=== PATIENT | female | born 1995 | race Caucasian/White ===

== ENCOUNTER 2021-06-25 16:11 | Emergency (ER) | payer OTHER, SELFPAY ==
[2021-06-25 16:11] VITALS: BP 124/77; PULSE 115; RESP 16; TEMP 37.1; O2SAT 98; BMI 50.8
[2021-06-25 16:31] VITALS: BP 104/37; PULSE 111; RESP 20; O2SAT 99
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
[2021-06-25 16:37] VITALS: BP 131/74; PULSE 107; RESP 20; O2SAT 97
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
[2021-06-25 17:01] VITALS: BP 114/70; PULSE 105; RESP 20; O2SAT 97
--- NOTE | 2021-06-25 17:07 | PC.NURSE ---
USHA HESS at
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
[2021-06-25 17:51] LABS: HCG Qualitative, Serum Negative (Negative)
[2021-06-25 17:52] LABS: Alanine Aminotransferase 30 U/L (12-78); Albumin Level 3.9 g/dl (3.5-5.0); Albumin/Globulin Ratio 1.3 (1.1-1.8); Alkaline Phosphatase 87 U/L (38-126); Anion Gap 10.9 mEq/L (5-15); Aspartate Amino Transferase 29 U/L (14-36); Bilirubin,Total 0.3 mg/dl (0.2-1.3); Blood Urea Nitrogen 8 mg/dl (7-17); Calcium 8.8 mg/dl (8.4-10.2); Carbon Dioxide 27 mmol/L (22.0-30.0); Chloride 105 mmol/L (98-107); Creatinine Clearance Estimated 101 mL/min (50-200); Estimated Glomerular Filt Rate 120 ml/min (>60); GFR (African American) 145 ML/MIN (>60); Glucose 109 mg/dl (74-100); Potassium 3.9 mmoL/L (3.5-5.1); Sodium 139 mmol/L (136-145); Total Protein,Serum 6.9 g/dl (6.3-8.2)
[2021-06-25 17:54] LABS: Basophils # 0.1 K/mm3 (0-0.2); Basophils % 0.9 % (0.1-2.0); Eosinophils # 0.2 K/mm3 (0.0-0.4); Eosinophils % 1.8 % (0.1-12.0); Hematocrit 35.5 % (37.0-47.0); Hemoglobin 11.4 g/dL (12.2-16.2); Lymphocytes # 2.1 K/mm3 (0.7-4.5); Lymphocytes % 25.4 % (10-50); Mean Corpuscular HGB Conc 32.2 g/dL (31.8-35.4); Mean Corpuscular Hemoglobin 23.9 pg (27.0-31.2); Mean Corpuscular Volume 74.4 fl (81-99); Mean Platelet Volume 7.9 fl (7.4-10.4); Monocytes # 0.4 K/mm3 (0.1-1.0); Monocytes % 5.1 % (1.7-9.3); Neutrophils # 5.6 K/mm3 (1.8-7.8); Neutrophils % 66.8 % (37.0-80.0); Platelet Count 357 K/mm3 (142-424); Red Blood Count 4.77 M/mm3 (4.20-5.40); Red Cell Distribution Width 16.1 % (11.5-17.5); White Blood Count 8.3 K/mm3 (4.8-10.8)
[2021-06-25 20:19] VITALS: BP 114/70; PULSE 105; RESP 18; TEMP 36.7; O2SAT 99
== END 2021-06-25 20:22 | disposition home or self-care (01) ==
PROVIDERS: Emergency Provider Emergency Medicine
DX: S40.012A Contusion of left shoulder, initial encounter (principal); S70.02XA Contusion of left hip, initial encounter; M54.2 Cervicalgia; V87.7XXA Person injured in collision between other specified motor vehicles (traffic), initial encounter
CPT/HCPCS: 70450; 71275; 72125; 73000; 73030; 73060; 73502; 73552; 74177; 80053; 84703; 85025; 99284; Q9967

== ENCOUNTER → 2022-03-11 15:26 | Outpatient (CLI) | payer OTHER, SELFPAY ==
[2022-03-11 15:33] LABS: Adenovirus,PCR Not Detected (NotDetected); Bordetella Pertussis Not Detected (NotDetected); Chlamydophila Pneumoniae, PCR Not Detected (NotDetected); Coronavirus 19, PCR Not Detected (NotDetected); Coronavirus 229E Not Detected (NotDetected); Coronavirus NL63 Not Detected (NotDetected); Coronavirus OC43 Not Detected (NotDetected); Human Metapneumovirus Not Detected (NotDetected); Influenza A, PCR Not Detected (NotDetected); Influenza AH1, 2009 Not Detected (NotDetected); Influenza AH1, PCR Not Detected (NotDetected); Influenza AH3,PCR Not Detected (NotDetected); Influenza B, PCR Not Detected (NotDetected); Mycoplasma Pneumoniae, PCR Not Detected (NotDetected); Parainfluenza 1, PCR Not Detected (NotDetected); Parainfluenza 2, PCR Not Detected (NotDetected); Parainfluenza 3, PCR Not Detected (NotDetected); Parainfluenza 4, PCR Not Detected (NotDetected); Respiratory Syncytial Virus Not Detected (NotDetected); Rhinovirus/Enterovirus Not Detected (NotDetected)
[2022-03-11 17:13] LABS: Coronovirus HKU1,PCR Detected (NotDetected)
== END ==
LOC: LAB 15:27
PROVIDERS: PCP Family Medicine; Visit Provider Nurse Practitioner Family
DX: U07.1 COVID-19 (principal); J02.9 Acute pharyngitis, unspecified; R05.1 Acute cough
CPT/HCPCS: 87581; 87632; 87798; C9803; U0003; U0005

== ENCOUNTER 2022-07-04 01:16 | Emergency (ER) | payer OTHER, SELFPAY ==
--- NOTE | 2022-07-04 | ECG_ITS ---
APPROVED REPORT Exam: Resting ECG HR:95 bpm ECG Measurements Heart Rate 95 AXES NC 164 P -9 QRSd 86 QRS 30 QT 326 T 10 QTc 378 Conclusion SINUS RHYTHM NORMAL ECG UNCONFIRMED REPORT Electronically signed by : Pedro Carbajal MD 07/05/2022 14:32:27
[2022-07-04 01:17] VITALS: BP 149/81; PULSE 91; RESP 17; TEMP 36.8; O2SAT 100; BMI 53.8
[2022-07-04 01:30] VITALS: BP 115/77; PULSE 85; O2SAT 100
--- NOTE | 2022-07-04 01:52 | XR_ITS ---
PROCEDURE INFORMATION: Exam: XR Chest Exam date and time: 07/04/2022 1:51 AM Age: 26 years old Clinical indication: Pain; Chest pressure; Additional info: Chest pain TECHNIQUE: Imaging protocol: Radiologic exam of the chest. Views: 2 views. COMPARISON: CT ANGIO CHEST 06/25/2021 6:09 PM FINDINGS: Lungs: Normal. Pleural spaces: Unremarkable. No pleural effusion. No pneumothorax. Heart/Mediastinum: Normal. Bones/joints: No acute abnormality. IMPRESSION: No acute findings.
[2022-07-04 02:01] LABS: Basophils # 0.1 K/mm3 (0-0.2); Basophils % 0.5 % (0.1-2.0); Eosinophils # 0.2 K/mm3 (0.0-0.4); Eosinophils % 1.7 % (0.1-12.0); Hematocrit 37.4 % (37.0-47.0); Hemoglobin 11.6 g/dL (12.2-16.2); Lymphocytes # 3.8 K/mm3 (0.7-4.5); Lymphocytes % 33.9 % (10-50); Mean Corpuscular HGB Conc 30.9 g/dL (31.8-35.4); Mean Corpuscular Hemoglobin 21.9 pg (27.0-31.2); Mean Corpuscular Volume 70.8 fl (81-99); Mean Platelet Volume 7.9 fl (7.4-10.4); Monocytes # 0.6 K/mm3 (0.1-1.0); Monocytes % 5.4 % (1.7-9.3); Neutrophils # 6.5 K/mm3 (1.8-7.8); Neutrophils % 58.4 % (37.0-80.0); Platelet Count 412 K/mm3 (142-424); Red Blood Count 5.29 M/mm3 (4.20-5.40); Red Cell Distribution Width 17.2 % (11.5-17.5); White Blood Count 11.1 K/mm3 (4.8-10.8)
[2022-07-04 02:02] LABS: Chloride 101 mmol/L (98-107)
--- NOTE | 2022-07-04 02:02 | PC.NURSE ---
patient back in room from [facility] at this time.
[2022-07-04 02:03] LABS: Potassium 3.9 mmoL/L (3.5-5.1); Sodium 138 mmol/L (136-145)
[2022-07-04 02:05] LABS: Amylase 65 U/L (30-110)
[2022-07-04 02:06] LABS: Anion Gap 9.9 mEq/L (5-15); Blood Urea Nitrogen 9 mg/dl (7-17); Calcium 8.9 mg/dl (8.4-10.2); Carbon Dioxide 31 mmol/L (22.0-30.0); Creatinine Clearance Estimated 90 mL/min (50-200); Estimated Glomerular Filt Rate 100 ml/min (>60); GFR (African American) 121 ML/MIN (>60); Glucose 100 mg/dl (74-100); Lipase 122 U/L (23-300); Magnesium 2.1 mg/dl (1.6-2.3)
[2022-07-04 02:08] VITALS: BP 121/75; PULSE 80; O2SAT 97
[2022-07-04 02:13] LABS: HCG Qualitative, Serum Negative (Negative)
[2022-07-04 02:18] LABS: Troponin I < 0.01 ng/ml (0.00-0.034)
[2022-07-04 02:30] VITALS: BP 136/77; PULSE 90; O2SAT 100
[2022-07-04 02:41] LABS: Coronavirus 19, PCR Not Detected (NotDetected); Influenza A, PCR Not Detected (NotDetected); Influenza B, PCR Not Detected (NotDetected); Microscopic, Urine URINE MICROSCOPIC (MICROSCOPIC)
[2022-07-04 02:42] LABS: Appearance,Urine CLEAR (Clear); Bilirubin,Urine Negative (Negative); Blood, Urine Negative (Negative); Color,Urine YELLOW (Yellow); Glucose,Urine (UA) Negative (Negative); Ketones,Urine Negative (Negative); Leukocyte Esterase,Urine 3+ (Negative); Nitrate,Urine Negative (Negative); PH,Urine 5.5 (5.0-8.5); Protein,Urine Negative (Negative); Specific Gravity, Urine <= 1.005 (1.005-1.030); Urobilinogen,Urine 0.2 EU/dl (0.2)
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
[2022-07-04 02:53] LABS: Bacteria,Urine 1+ /lpf; WBC,Urine 20-50 #/hpf (0-3)
[2022-07-04 03:00] VITALS: BP 128/83; PULSE 84; O2SAT 98
--- NOTE | 2022-07-04 03:21 | PC.NURSE ---
pt brought back to room from wheelchair
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
[2022-07-04 04:13] VITALS: BP 116/72; PULSE 79; RESP 18; TEMP 36.8; O2SAT 98
== END 2022-07-04 04:18 | disposition home or self-care (01) ==
PROVIDERS: Emergency Provider Emergency Medicine; PCP Nurse Practitioner Family
DX: R07.89 Other chest pain (principal); M25.511 Pain in right shoulder; N39.0 Urinary tract infection, site not specified
CPT/HCPCS: 71046; 71275; 80048; 81001; 82150; 83690; 83735; 84484; 84703; 85025; 87086; 87635; 87636; 93005; 96361; 96374; 96375; 99285; C9803; J0696; Q9967; U0003; U0005

== ENCOUNTER 2023-10-11 11:34 | Outpatient (CLI) | payer OTHER, SELFPAY ==
[2023-10-13 04:13] LABS: Progesterone 1.3 ng/mL (.)
== END 2023-10-11 23:59 | disposition home or self-care (01) ==
LOC: LAB 11:41
PROVIDERS: PCP Nurse Practitioner Family; Visit Provider Nurse Practitioner Family
DX: N97.9 Female infertility, unspecified (principal)
CPT/HCPCS: 36415; 84144

== ENCOUNTER 2024-12-08 11:39 | Emergency (ER) | payer OTHER, SELFPAY ==
[2024-12-08 11:44] VITALS: BP 154/81; PULSE 94; RESP 16; TEMP 37.1; O2SAT 100; BMI 45.3
[2024-12-08 11:51] VITALS: BP 137/79; PULSE 93; O2SAT 99
--- OUTSIDE RECORDS SUMMARY | 2024-12-08 11:57 | XMS_ITS | Continuity of Care Document ---
Author Organization [place] [facility] [place] [facility] and [facility]urg Address [address] [place] [address] Care Team Providers Care Agricultural Extension Educator Name Role Phone [facility] Primary Care Pro vider Assessment Encounter Date Assessment Date Assessment LastModified by Organization Details LastModified Time 10/23/2024 10/23/2024 A total of 5 minutes was spent with the pt today. Recommendations: 1. Download Barit[employer] and start keeping food records 2. Look for food triggers and replace with healthy snacks 3. Wean of diet soft drinks 4. Eat 3-6 times a day 5. Review manual for meal and snack ideas 6. Physical activity 3 times a week for 20 min 7. Start pre-op diet when instructed Pt doing well overall. Addressed concerns today. Pt was reassured at today's visit. Pt verbally agreed to recommendations and goals. Denied further questions/concerns . RDN will monitor weight loss, labs, meds, and lifestyle modifications. Will f/up as scheduled or PRN. Not available 10/23/2024 09:16:53 Plan of Treatment Reminders Order Date Submit Date Provider Last Modified By Organization Details Last Modified Time Details Appointments OV EST 20 025 10:40AM MEHREEN GTZ RD Not available Not available Not available OV EST 20 025 08:40AM ARTUR Caballero Not available Not available Not available Lab None record ed. Referral None record ed. Procedures None record ed. Surgeries None record ed. Imaging None record ed. Medication Orders None record ed. Patient Targets Encounter Date Encounter Id Patient Goals Patient Target Last Modified By Organization Details Last Modified Time 10/23/2024 [id number] 1. Download Baritastic and start keeping food records 2. Look for food triggers and replace with healthy snacks 3. Wean of diet soft drinks 4. Eat 3-6 times a day 5. Review manual for meal and snack ideas 6. Physical activity 3 times a week for 20 min [email or web address] Not available 10/23/2024 09:16:31 Patient InstructionsNo instructions recorded. Reason for Referral None Reported. Results Created Date Observation Date Name Description Value Unit Range Abnormal Flag Note LastModifiedBy Organization Detail LastModifiedTime 09/26/1909/25/2024 XR, chest , 2 view [facility] [address] [place] [address] Phone: Fax: Name: JONNY GUERRERO RD Exam Date: : [birth year] Age 29 years Gender : F Access ion: [id number] Physic lola: JESSI QUEVEDO Facili ty: [facility] Facili ty HSV: Outpat ient Exam: CHEST 2 VIEWS EXAM: XR CHEST 2 VIEWS INDICA TION: preop. . TECHNI QUE: 2 views of the chest were submit roselia. COMPAR LAMAR:N o prior study was submit roselia for compar lamar FINDIN GS: The medias tinum and cardia c silhou ette are not enlarg ed. There is no pneumo thorax . There is no pulmon mary jane infilt rate or atelec tasis. IMPRES FAM: No infilt rate. Electr onical ly signed by: Shawn buckley MD 2024 10:18 AM EDT RP Workst ation: [id number] Dictat ed By: SHAWN DANIELSON Transc ribed By: Transc ribed On: 025 10:18 AM Electr onical ly signed by: SHAWN DANIELSON Thank you for referr pepper GUERRERO WINTERJONNY to [facility] it Hospit al. Legall y authen ticate d by ALEXIA Castañeda 09-25 10:18: 22 CC'ed Logic: Orderi ng Provid er: EMY Buckley Attend ing Provid er: EMY Buckley Admitt ing Provid er: EMY Buckley [id number] [facility] [address], [place], [address], 09/25/2024 10:31:48 Result Notes None recorded. Problems Name Problem SNOMED Code Status Onset Date Resolution Date Notes Provider Name and Address Organization Details Recorded Time Prediabete s 841369351 Active 2024 WHIT QUEVEDO NP [address], [place], [address] , [place] - [facility] [place] [facility] [place] 5 08:52:53 Polycystic ovary syndrome 615626524 Active 2024 WHIT QUEVEDO NP [address] [facility], [place], [address] , [place] - [facility] [place] [facility] [place] 5 08:52:58 Severe obesity 6819715103850 4 Active 2024 WHIT QUEVEDO NP [address] [facility], [place], [address] , [place] [facility] [place] [facility] [place] 5 08:53:45 Problem Notes None recorded. Procedures Surgical History Date Name Laterality Status Provider Name and Address Organization Details Recorded Time 11/13 bypass of duodenum completed Maine Mccoy [place] - [facility] [place] [facility] [place] 5 08:17:26 09/21 ESOPHAGOGASTRODUODENOSCOPY (SURG) completed Ian keith [place] - [facility] [place] [facility] [place] 5 13:07:00 02/08 extraction of wisdom tooth completed CHRISTINA QUEVEDO NP [address] [facility], [place], [address] , [place] - [facility] [place] [facility] [place] 5 10:38:14 Imaging Results None recorded. Procedure Notes None recorded. Medical Equipment None Reported. Allergies Allergen ID Allergen Name Allergen Category Reaction Reaction Severity Criticality Documentation Date Start Date Code Code System Note Provider Name and Address Organization Details Recorded Time 126343 amoxicill in medicatio n hives Not available Not available 08/31/2024 723 RxNorm Lilly Velazquez [facility], [facility] [place] 08:14:49 Medications Name Sig Start Date Stop Date Status Note LastModified by Organization Details LastModified Time Neurontin 300 mg capsule Take 1 capsule 3 times a day by oral route for 7 days. 11/22 completed Not Available Not Available Not Available Celebrex 100 mg capsule Take 1 capsule twice a day by oral route ] for 7 days. 11/22 completed Not Available Not Available Not Available omeprazole 20 mg capsule,ivory yed release Take 1 capsule every day by oral route for 30 days. 2024 active Not Available Not Available Not Avai lable Vitals Date Recorded Body weight Provider Name an d Address Organization Details Last Updated DateTime 10/23/2024 691202.49 g Chelsi BUTLER [address] [facility], [place], [address], [facility] [place] 10/23/2024 09:17:51 Social History None recorded. Functional Status Question Answer Note LastModified by Organizat ion Details LastModified Time Do you use any illicit or recreational drugs? No [email or web address] Information not available 08/31/2024 What is your level of alcohol consumption? None [email or web address] Information not available 08/31/2024 Mental Status None recorded. Family History Relationship Description Onset Age of this Age Resolved Age Notes LastModified by Organization Details LastModified Time Maternal Grandmother Disorder of endocrine system pt. added direct ly (08/28) [email or web address] Not available 08/28/2024 13:12:00 Paternal Aunt Disorder of endocrine system pt. added direct ly (08/28) [email or web address] Not available 08/28/2024 13:12:00 Paternal Aunt Obesity pt. added direct ly (08/28) [email or web address] Not available 08/28/2024 13:12:29 Mother Obesity pt. added direct ly (08/28) [email or web address] Not available 08/28/2024 13:12:29 Maternal Aunt Obesity pt. added direct ly (08/28) [email or web address]-13 Not available 08/28/2024 13:12:29 Medical History Condition Response Diabetes Y Other Y Pulmonary Embolism N Gynecological HistoryNo gynecological history recorded. Obstetrics History GPAL:G 0 P 0 0 0 0 Past Encounters Encounter ID Performer Location Encounter Start Date Encounter Closed Date Diagnosis/Indication Diagnosis SNOMED-CT Code Diagnosis ICD10 Code Diagnosis IMO Codes Diagnosis Note [id number] [address], LD [facility] Bariat[facility] and Adv Surg [address] [place] [address] 09/25/2024 08:55:39 09/25/2024 10:04:47 Morbid obesity 873792213 E66.01 91609 BMI 49 wt loss 7.5# [id number] MEHREEN GTZ RD [facility] Bariatric s and Adv Surg [address] [address] [place] [address] 10/23/2024 08:56:55 10/23/2024 09:43:22 Diet education 37014602 Z71.3 [id number] Health Concerns Section Related Observation LastModified by Organization Detai ls LastModified Time None Recorded Concern Status LastModified by Organization Details LastModified Time None Recorded Payers Encounter Date Sequence Insurance Name Policy Number Policy Parker Covered Member ID Parker Member ID Guarantor Name 10/23/2024 1 HEENA Dawson [id number] Jonny Dawson Notes Date Note Type Note Provider Name and Address Organization Details Recorded Time 10/23/2024 text/html RDN met w/ pt today for weight-check in pursuit of WLS. Height: 61 Weight Today: 255.4BMI: 48.2 Weight change since last visit: -4.1#Weight Hx:267# on 08/31/19960.5# on 09/25/24 Current Diet: High Protein, moderate carb, cut down on diet coke and has increase water and powerade zero, drinking protein shakesCurrent Exercise: walking dogs MEHREEN GTZ [address], [place], [address], [facility] [place] 10/23/2024 09:17:13 OBGyn Episode No OBEpisode recorded.
--- OUTSIDE RECORDS SUMMARY | 2024-12-08 11:57 | XMS_ITS | Data Portability ---
Author Organization [facility] Address [address] [place] [address] Assessment Encounter Date Assessment Date Assessment LastModified by Organization Details LastModified Time 02/11/2024 02/11/2024 Labs per plan below. Wellness discussed including recommended screenings, vaccines and lifestyle changes including routine exercise 30 minutes 5 times per week and a healthy diet. Continue care with PHARMACY OPERATIONS COORDINATOR. Follow up in 1 year for annual physical, sooner if needed. Not available 02/16/2024 12:57:13 09/29/2024 09/29/2024 Cleared from primary care standpoint. Paperwork completed and labs reviewed (WNL) with patient in clinic today. Follow up after surgery as needed Not available 10/04/2024 18:12:30 Plan of Treatment Reminders Order Date Submit Date Provider Last Modified By Organization Details Last Modified Time Details Appointments None recorded. Lab progesteron e, serum 2024 025 [facility] ([facility]), [address] [place], [address], 5 04:06:45 vaginal pathogens panel, PATTI+probe, vaginal fluid 2024 025 [facility] ([facility]), [address] [place], [address], 5 22:06:07 [email or web address] otropin, qual, urine 2024 025 [email or web address] [facility] ([place]), [address] [place], [address], 5 11:30:51 TSH, ultra-sensi tive, serum 2024 025 [facility]), [facility] [place], [address], 5 04:07:36 lipid panel, serum 2024 025 [facility]), [facility] [place], [address], 5 04:07:36 HbA1c (hemoglobin A1c), blood 2024 025 [facility]), [address] [place] [address], [address], 5 04:07:36 CBC w/ auto diff 2024 025 [facility]), [address] [place] [address], [address], 5 04:07:35 CMP, serum or plasma 2024 025 [facility]), [address] [place] [address], [address], 5 04:07:35 Referral None recorded. Procedures artificial inseminatio n, intrauterin e (PROC) 2024 025 [email or web address]-[id number] [facility], [place], [address] [place] [address], [id number], 5 14:15:55 Surgeries None recorded. Imaging US, pelvis 2024 025 [facility] [place] [address], [address] [place] [address], [address], 5 09:37:33 US, hysterosalp ingogram [email or web address] [place] [address] (Central Scheduling), [address] [place] [address] [place], [address], 09:02:44 Medication Orders Ovidrel 250 mcg/0.5 mL subcutaneou s syringe 2024 025 [facility], [address], [address], 5 16:44:12 Ozempic 0.25 mg or 0.5 mg (2 mg/1.5 mL) subcutaneou s pen injector 2024 025 [facility], [address] [address], [place], [address], 16:15:17 Patient TargetsNo targets recorded. Patient Instructions Encounter Date Encounter Id Patient Instructions Last Modified By Organization Details Last Modified Time 09/29/2024 [id number] body mass index: care instructions Not available 10/04/2024 18:13:25 learning about healthy weight Not available 10/04/2024 18:13:25 Reason for Referral None Reported. Results Created Date Observation Date Name Description Value Unit Range Abnormal Flag Note LastModifiedBy Organization Detail LastModifiedTime 01/17/20 24 01/18/2024 PROGE STERO NE progesterone <0.1 NG/mL Folli cular phase 0.1 - 0.9 Lutea l phase 1.8 - 23.9 Ovula tion phase 0.1 - 12.0 Pregn ant First trime ster 11.0 - 44.3 Secon d trime ster 25.4 - 83.3 Third trime ster 58.7 - 214.0 Postm enopa usal 0.0 - 0.1 Not Available [facility] ([facility]) [address] [facility], [place], [address], 01/18/2024 04:07:10 02/10/19 25 02/12/2024 CBC WITH DIFFE RENTI AL/PL ATELE T WBC 7.3 x10e3 /uL 3.4-10 .8 normal Not Available [facility] ([facility]) [address] [facility], [place], [address], 02/12/2024 04:07:35 02/10/1902/12/2024 CBC WITH DIFFE RENTI AL/PL ATELE T RBC 4.93 x10e6 /uL 3.77-5 .28 normal Not Available [facility] ([facility]) [address] [place], [address], 02/12/2024 04:07:35 02/10/19 25 02/12/2024 CBC WITH DIFFE RENTI AL/PL ATELE T hemoglobin 13.6 g/dL 11.1-1 5.9 normal Not Available [facility] ([facility]) [address] [facility], [place], [address], 02/12/2024 04:07:35 02/10/1902/12/2024 CBC WITH DIFFE RENTI AL/PL ATELE T hematocrit 41.8 % 34.0-4 6.6 normal Not Available [facility] ([facility]) [address] [place], [address], 02/12/2024 04:07:35 02/10/1902/12/2024 CBC WITH DIFFE RENTI AL/PL ATELE T MCV 85 fL 79-97 normal Not Available [facility] ([facility]) [address] [place], [address], 02/12/2024 04:07:35 02/10/1902/12/2024 CBC WITH DIFFE RENTI AL/PL ATELE T MCH 27.6 pg 26.6-3 3.0 normal Not Available [facility] ([facility]) [address] [place], [address], 02/12/2024 04:07:35 02/10/19 25 02/12/2024 CBC WITH DIFFE RENTI AL/PL ATELE T MCHC 32.5 g/dL 31.5-3 5.7 normal Not Available [facility] ([facility]) [address] [facility], [place], [address], 02/12/2024 04:07:35 02/10/19 25 02/12/2024 CBC WITH DIFFE RENTI AL/PL ATELE T RDW 13.2 % 11.7-1 5.4 Not Available [facility] ([facility]) [address] [facility], [place], [address], 02/12/2024 04:07:35 02/10/19 25 02/12/2024 CBC WITH DIFFE RENTI AL/PL ATELE T platelets 376 x10e3 /uL 150-45 0 normal Not Available [facility] ([facility]) [address] [facility], [place], [address], 02/12/2024 04:07:35 02/10/19 25 02/12/2024 CBC WITH DIFFE RENTI AL/PL ATELE T neutrophils 49 % not estab. normal Not Available [facility] ([facility]) [address] [facility], [place], [address], 02/12/2024 04:07:35 02/10/19 25 02/12/2024 CBC WITH DIFFE RENTI AL/PL ATELE T lymphs 41 % not estab. normal Not Available [facility] ([facility]) [address] [facility], [place], [address], 02/12/2024 04:07:35 02/10/19 25 02/12/2024 CBC WITH DIFFE RENTI AL/PL ATELE T monocytes 6 % not estab. normal Not Available [facility] ([facility]) [address] [facility], [place], [address], 02/12/2024 04:07:35 02/10/19 25 02/12/2024 CBC WITH DIFFE RENTI AL/PL ATELE T eos 3 % not estab. normal Not Available [facility] ([facility]) [address] [facility], [place], [address], 02/12/2024 04:07:35 02/10/19 25 02/12/2024 CBC WITH DIFFE RENTI AL/PL ATELE T basos 1 % not estab. normal Not Available [facility] ([facility]) [address] [facility], [place], [address], 02/12/2024 04:07:35 02/10/19 25 02/12/2024 CBC WITH DIFFE RENTI AL/PL ATELE T immature cells BUSINESS OBJECTS ANALYST Not Available [facility] ([facility]) [address] [facility], [place], [address], 02/12/2024 04:07:35 02/10/19 25 02/12/2024 CBC WITH DIFFE RENTI AL/PL ATELE T neutrophils (absolute) 3.6 x10e3 /uL 1.4-7. 0 normal Not Available [facility] ([facility]) [address] [facility], [place], [address], 02/12/2024 04:07:35 02/10/19 25 02/12/2024 CBC WITH DIFFE RENTI AL/PL ATELE T lymphs (absolute) 3.0 x10e3 /uL 0.7-3. 1 normal Not Available [facility] ([facility]) [address] [facility], [place], [address], 02/12/2024 04:07:35 02/10/19 25 02/12/2024 CBC WITH DIFFE RENTI AL/PL ATELE T monocytes(ab solute) 0.4 x10e3 /uL 0.1-0. 9 normal Not Available [facility] ([facility]) [address] [place], [address], 02/12/2024 04:07:35 02/10/19 25 02/12/2024 CBC WITH DIFFE RENTI AL/PL ATELE T eos (absolute) 0.2 x10e3 /uL 0.0-0. 4 normal Not Available [facility] ([facility]) [address] [facility], [place], [address], 02/12/2024 04:07:35 02/10/19 25 02/12/2024 CBC WITH DIFFE RENTI AL/PL ATELE T baso (absolute) 0.0 x10e3 /uL 0.0-0. 2 normal Not Available [facility] ([facility]) [address] [facility], [place], [address], 02/12/2024 04:07:35 02/10/19 25 02/12/2024 CBC WITH DIFFE RENTI AL/PL ATELE T immature granulocytes 0 % not estab. Not Available [facility] ([facility]) [address] [facility], [place], [address], 02/12/2024 04:07:35 02/10/19 25 02/12/2024 CBC WITH DIFFE RENTI AL/PL ATELE T immature grans (abs) 0.0 x10e3 /uL 0.0-0. 1 Not Available [facility] ([facility]) [address] [facility], [place], [address], 02/12/2024 04:07:35 02/10/19 25 02/12/2024 CBC WITH DIFFE RENTI AL/PL ATELE T NRBC BUSINESS OBJECTS ANALYST Not Available [facility] ([facility]) [address] [facility], [place], [address], 02/12/2024 04:07:35 02/10/19 25 02/12/2024 CBC WITH DIFFE RENTI AL/PL ATELE T hematology comments: BUSINESS OBJECTS ANALYST Not Available [facility] ([facility]) [address] [facility], [place], [address], 02/12/2024 04:07:35 02/10/19 25 02/12/2024 COMP. METAB OLIC PANEL (14) glucose 108 mg/dL 70-99 above high normal Not Available [facility] ([facility]) [address] [place], [address], 02/12/2024 04:07:35 02/10/19 25 02/12/2024 COMP. METAB OLIC PANEL (14) BUN 10 mg/dL 6-20 normal Not Available [facility] ([facility]) [address] [facility], [place], [address], 02/12/2024 04:07:35 02/10/19 25 02/12/2024 COMP. METAB OLIC PANEL (14) creatinine 0.60 mg/dL 0.57-1 .00 normal Not Available [facility] ([facility]) [address] [facility], [place], [address], 02/12/2024 04:07:35 02/10/19 25 02/12/2024 COMP. METAB OLIC PANEL (14) eGFR 124 mL/mi n/1.7 3 >59 normal Not Available [facility] ([facility]) [address] [facility], [place], [address], 02/12/2024 04:07:35 02/10/19 25 02/12/2024 COMP. METAB OLIC PANEL (14) BUN/creatini ne ratio 17 9-23 normal Not Available [facility] ([facility]) [address] [facility], [place], [address], 02/12/2024 04:07:35 02/10/19 25 02/12/2024 COMP. METAB OLIC PANEL (14) sodium 139 mmol/ L 134-14 4 normal Not Available [facility] ([facility]) [address] [facility], [place], [address], 02/12/2024 04:07:35 02/10/19 25 02/12/2024 COMP. METAB OLIC PANEL (14) potassium 4.1 mmol/ L 3.5-5. 2 normal Not Available [facility] ([facility]) [address] [facility], [place], [address], 02/12/2024 04:07:35 02/10/19 25 02/12/2024 COMP. METAB OLIC PANEL (14) chloride 103 mmol/ L 96-106 normal Not Available [facility] ([facility]) [address] [facility] [place], [address], 02/12/2024 04:07:35 02/10/19 25 02/12/2024 COMP. METAB OLIC PANEL (14) carbon dioxide, total 20 mmol/ L 20-29 normal Not Available [facility] ([facility]) [address] [place] [place], [address], 02/12/2024 04:07:35 02/10/19 25 02/12/2024 COMP. METAB OLIC PANEL (14) calcium 9.2 mg/dL 8.7-10 .2 normal Not Available [facility] ([facility]) [address] [facility], [place], [address], 02/12/2024 04:07:35 02/10/19 25 02/12/2024 COMP. METAB OLIC PANEL (14) protein, total 7.0 g/dL 6.0-8. 5 normal Not Available [facility] ([facility]) [address] [place] [place], [address], 02/12/2024 04:07:35 02/10/19 25 02/12/2024 COMP. METAB OLIC PANEL (14) albumin 4.2 g/dL 4.0-5. 0 normal Not Available [facility] ([facility]) [address] [place] [place], [address], 02/12/2024 04:07:35 02/10/19 25 02/12/2024 COMP. METAB OLIC PANEL (14) globulin, total 2.8 g/dL 1.5-4. 5 Not Available [facility] ([facility]) [address] [facility], [place], [address], 02/12/2024 04:07:35 02/10/19 25 02/12/2024 COMP. METAB OLIC PANEL (14) bilirubin, total 0.5 mg/dL 0.0-1. 2 normal Not Available [facility] ([facility]) [address] [place] [place], [address], 02/12/2024 04:07:35 02/10/19 25 02/12/2024 COMP. METAB OLIC PANEL (14) alkaline phosphatase 92 IU/L 44-121 normal Not Available [facility] ([facility]) [address] [place] [place], [address], 02/12/2024 04:07:35 02/10/19 25 02/12/2024 COMP. METAB OLIC PANEL (14) AST (SGOT) 23 IU/L 0-40 normal Not Available [facility] ([facility]) [address] [place] [place], [address], 02/12/2024 04:07:35 02/10/19 25 02/12/2024 COMP. METAB OLIC PANEL (14) ALT (SGPT) 37 IU/L 0-32 above high normal Not Available [facility] ([facility]) [address] [place] [place], [address], 02/12/2024 04:07:35 02/10/19 25 02/12/2024 LIPID PANEL cholesterol, total 174 mg/dL 100-19 9 normal Not Available [facility] ([facility]) [address] [place] [place], [address], 02/12/2024 04:07:36 02/10/19 25 02/12/2024 LIPID PANEL triglyceride s 189 mg/dL 0-149 above high normal Not Available [facility] ([facility]) [address] [facility] [place], [address], 02/12/2024 04:07:36 02/10/19 25 02/12/2024 LIPID PANEL HDL cholesterol 44 mg/dL >39 normal Not Available [facility]) [address] [place] [place], [address], 02/12/2024 04:07:36 02/10/19 25 02/12/2024 LIPID PANEL VLDL cholesterol madison 33 mg/dL 5-40 Not Available [facility] ([facility]) [address] [place], [address], 02/12/2024 04:07:36 02/10/19 25 02/12/2024 LIPID PANEL LDL chol calc ([facility]) 97 mg/dL 0-99 Not Available [facility]) [address] [place], [address], 02/12/2024 04:07:36 02/10/1902/12/2024 LIPID PANEL LDL calc comment: BUSINESS OBJECTS ANALYST Not Available [facility] ([facility]) [address] [place], [address], 02/12/2024 04:07:36 02/10/1902/12/2024 HEMOG LOBIN A1C hemoglobin A1C 5.8 % 4.8-5. 6 above high normal Predi abete s: 5.7 - 6.4 Diabe jeffrey: >6.4 Glyce [place] contr ol for adult s with diabe jeffrey: <7.0 Not Available [facility] ([facility]) [address] [place], [address], 02/12/2024 04:07:36 02/10/1902/12/2024 TSH RFX ON ABNOR MAL TO FREE T4 TSH 2.160 uIU/m L 0.450- 4.500 normal Not Available [facility] ([facility]) [address] [place], [address], 02/12/2024 04:07:36 02/15/1902/16/2024 URINE PREGN MICHAEL TEST urine test NEGATI VE negati ve Not Available [facility] ([facility]) [address] [place] [address] [place], [address], 02/16/2024 13:26:13 02/15/19 25 02/16/2024 URINE PREGN MICHAEL TEST HCG urine int control PASS PASS Not Available [facility] ([facility]) [address] [place] [address] [place], [address], 02/16/2024 13:26:13 02/15/19 25 02/16/2024 URINE PREGN MICHAEL TEST note Unles s other salazar noted testi ng perfo rmed at: [facility] [address] [place] [address] Preston jc MD Not Available [facility] ([facility]) [address] [place] [address] [place], [address], 02/16/2024 13:26:13 02/20/19 25 02/22/2024 NUSWA B VAGIN ITIS PLUS (VG+) atopobium vaginae Modera te - 1 score Not Available [facility] ([facility]) [address] [place], [address], 02/23/2024 22:06:07 02/20/19 25 02/22/2024 NUSWA B VAGIN ITIS PLUS (VG+) bvab 2 High - 2 score abnormal Not Available [facility] ([facility]) [address] [place], [address], 02/23/2024 22:06:07 02/20/19 25 02/22/2024 NUSWA B VAGIN ITIS PLUS (VG+) megasphaera 1 High - 2 score abnormal Calcu late total score by jose david g the 3 indiv idual bacte rial vagin osis (BV) marke r score s toget her. Total score is inter prete d as follo ws: Total score 0-1: Indic ates the absen ce of BV. Total score 2: Indet ermin ate for BV. Addit ional clini madison data shoul d be evalu ated to estab desiree a diagn osis. Total score 3-6: Indic ates the prese nce of BV. Not Available [facility] ([facility]) [address] [facility], [place], [address], 02/23/2024 22:06:07 02/20/19 25 02/22/2024 NUA B VAGIN ITIS PLUS (VG+) chetan albicans, PATTI Negati ve negati ve Not Available [facility] ([facility]) [address] [facility], [place], [address], 02/23/2024 22:06:07 02/20/19 25 02/22/2024 NUA B VAGIN ITIS PLUS (VG+) chetan glabrata, PATTI Negati ve negati ve Not Available [facility] ([facility]) [address] [facility], [place], [address], 02/23/2024 22:06:07 02/20/19 25 02/23/2024 NUA B VAGIN ITIS PLUS (VG+) trich vag by PATTI Negati ve negati ve Not Available [facility] ([facility]) [address] [place], [address], 02/23/2024 22:06:07 02/20/19 25 02/23/2024 NUA B VAGIN ITIS PLUS (VG+) chlamydia trachomatis, PATTI Negati ve negati ve Not Available [facility] ([facility]) [address] [place], [address], 02/23/2024 22:06:07 02/20/19 25 02/23/2024 NUA B VAGIN ITIS PLUS (VG+) neisseria gonorrhoeae, PATTI Negati ve negati ve Not Available [facility] ([facility]) [address] [place], [address], 02/23/2024 22:06:07 02/24/19 25 02/26/2024 PROGE STERO NE progesterone 0.1 NG/mL normal Folli cular phase 0.1 - 0.9 Lutea l phase 1.8 - 23.9 Ovula tion phase 0.1 - 12.0 Pregn ant First trime ster 11.0 - 44.3 Secon d trime ster 25.4 - 83.3 Third trime ster 58.7 - 214.0 Postm enopa usal 0.0 - 0.1 Not Available [facility] ([facility]) [address] [place], [address], 02/26/2024 04:06:45 04/21/19 25 04/21/2024 PROGE STERO NE progesterone 7.5 NG/mL normal Folli cular phase 0.1 - 0.9 Lutea l phase 1.8 - 23.9 Ovula tion phase 0.1 - 12.0 Pregn ant First trime ster 11.0 - 44.3 Secon d trime ster 25.4 - 83.3 Third trime ster 58.7 - 214.0 Postm enopa usal 0.0 - 0.1 Not Available [facility] ([facility]) [address] [place], [address], 04/21/2024 08:12:40 05/20/19 25 05/20/2024 PROGE STERO NE progesterone 9.1 NG/mL normal Folli cular phase 0.1 - 0.9 Lutea l phase 1.8 - 23.9 Ovula tion phase 0.1 - 12.0 Pregn ant First trime ster 11.0 - 44.3 Secon d trime ster 25.4 - 83.3 Third trime ster 58.7 - 214.0 Postm enopa usal 0.0 - 0.1 Not Available [facility] ([facility]) [address] [place], [address], 05/20/2024 08:25:58 02/15/19 25 02/16/2024 , aman jc No observ ation record ed. [email or web address] [address], [place], [address], 02/17/2024 10:29:52 01/09/27 2402/16/2024 HANNAH, mireya arana [facility] [address] [place] [address] [phone] (Phone ) YENI Medeiros REPORT Name: JONNY GUERRERO RD : 1995 Accoun t #: [id number] Age: 28 Years Patien t Type: Outpat ient Sex: F Access ion#: [id number] Exam Descri ption: HYSTER OSALPI NGOGRA M Exam Reason : abn uterin e bleedi ng Order Date/T katie: 2024 01:02: 00 PM Dictat ed By: Clayton buckley MD Orderi ng Physic lola: LETICIA MEYERS Attend ing Physic lola: LETICIA MEYERS EXAM DATE: 02/15/19 12:02 PM COLOR SPRAYER EXAM NAME: FL HYSTER OSALPI NGOGRA M Fluoro time: 0.5 minute s. Refere nce Air Kerma: 34.65 mGy. CLINIC AL INDICA TION: Abnorm al uterin e bleedi barbra, Intrau terine insemi [facility] to follow on 5. PROCED URES PERFOR MED: Hyster osalpi ngogra m, fluoro scopic guidan ce. PROCED URE DESCRI PTION: The patien t was lukas t to the fluoro scopic suite, and the proced ure was explai favio in great detail . All the patien t's questi ons were answer ed to her satisf action . A timeou t was perfor med. Patien t denies chance of curren t pregna ncy.Ur ine pregna ncy test is negati ve.. A female techno logist was presen t in the room during the exam. Dr. Meyers presregi t in room perfor modesto proced ure. Radiol ogy provid ed fluoro scopy. Then, approx imatel y 10 mL iodina roselia contra st was inject ed throug h the cathet er under fluoro scopic monito ring with imagin g of the pelvis in AP and obliqu e projec tion. PAGE 1 OF 2 Name: JONNY GUERRERO RD : 1995 Accoun t #: [id number] Age: 28 Years Patien t Type: Outpat ient Sex: F Access ion#: [id number] Exam Descri ption: HYSTER OSALPI NGOGRA M Exam Reason : abn uterin e bleedi ng Order Date/T katie: 2024 01:02: 00 PM FINDIN GS: The uterin e cavity contou r is unrema rkable . There are no fillin g defect s or abnorm alitie s. Both fallop lola tubes are patent with free perito ba spilla ge bilate rally. IMPRES FAM: Normal hyster osalpi ngogra m. Review ed, Interp reted and Dictat ed by Clayton buckley MD Transc ribed by Kam jeffries , BUSINESS OBJECTS ANALYST Authregi ticgustavo d and Electr onical ly signed by: Clayton buckley MD 2024 07:49 PM EST RP Workst ation: [id number] PAGE 2 OF 2 CC'ed Logic: Orderi ng Provid er: MIRA KELLY CC Provid er: MIRA KELLY Attend ing Provid er: MIRA KELLY Referr ing Provid er: MIRA KELLY Admitt ing Provid er: MIRA KELLY [email or web address] [facility] ([facility] [address] [place] [address] [place], [address], 02/17/2024 11:39:32 02/15/19 25 02/16/2024 US, mireya arana gram No observ ation record ed. [email or web address] [facility] Registration [address] [place] [address] [place], [address], 03/13/2024 15:52:21 06/09/19 25 06/08/2024 US, aman s No observ ation record ed. [address], [place], [address], 06/08/2024 10:48:37 Result Notes Documentation Provider Name and Address Organization Details Recorded Time Xr, Hysterosalpingogram : [address] [address] (Phone) IMAGING REPORT Name: JONNY DAWSON : 1995 Age: 28 Years Patient Type: Outpatient Sex: F Exam Description: HYSTEROSALPINGOGRAM Exam Reason: abn uterine bleeding Order Date/Time: 02/16/2024 01:02:00 PM Dictated By: Clayton Wolf MD Ordering Physician: LETICIA MEYERS Attending Physician: LETICIA MEYERS EXAM DATE: 02/16/2024 12:02 PM COLOR SPRAYER EXAM NAME: FL HYSTEROSALPINGOGRAM Fluoro time: 0.5 minutes. Reference Air Kerma: 34.65 mGy. CLINICAL INDICATION: Abnormal uterine bleeding, Intrauterine insemination to follow on 02/21/24. PROCEDURES PERFORMED: Hysterosalpingogram, fluoroscopic guidance. PROCEDURE DESCRIPTION: The patient was brought to the fluoroscopic suite, and the procedure was explained in great detail. All the patient's questions were answered to her satisfaction. A timeout was performed. Patient denies chance of current .Urine test is negative.. A female technologist was present in the room during the exam. Dr. Meyers present in room performing procedure. Radiology provided fluoroscopy. Then, approximately 10 mL iodinated contrast was injected through the catheter under fluoroscopic monitoring with imaging of the pelvis in AP and oblique projection. PAGE 1 OF 2 Name: JONNY DAWSON : 1995 Age: 28 Years Patient Type: Outpatient Sex: F Exam Description: HYSTEROSALPINGOGRAM Exam Reason: abn uterine bleeding Order Date/Time: 02/16/2024 01:02:00 PM FINDINGS: The uterine cavity contour is unremarkable. There are no filling defects or abnormalities. Both fallopian tubes are patent with free peritoneal spillage bilaterally. IMPRESSION: Normal hysterosalpingogram. Reviewed, Interpreted and Dictated by Clayton Wolf MD Transcribed by STEPHEN Campbell Authenticated and Electronically signed by: Clayton Wolf MD 02/16/2024 07:49 PM [facility] PAGE 2 OF 2 CC'ed Logic: Ordering Provider: MIRA KELLY CC Provider: MIRA KELLY Attending Provider: MIRA KELLY Referring Provider: MIRA KELLY Admitting Provider: MIRA Meyers MD [address] [place] [address], [phone], [facility] 02/17/2024 11:39:32 Problems Name Problem SNOMED Code Status Onset Date Resolution Date Notes Provider Name and Address Organization Details Recorded Time Prediabetes 830193527 Active 2023 Carie Ramsay NP [address] [place] [address], [phone], [facility] 4 17:55:19 Polycystic ovary syndrome 667680625 Active 2023 Carie Ramsay NP [address] [place] [address], [phone], [facility] 4 17:55:15 Female infertility 3248210 Active 2023 Claribel Carmichael APRN [address] [place] [address], [phone], [facility] 4 14:32:28 Fertility problem 23789123 Active 2024 Leticia Meyers MD [address] [place] [address], [phone], [facility] 5 09:01:02 Abnormal uterine bleeding 1051239802155 0 Active 2024 Leticia Meyers MD [address] [place] [address], [phone], [facility] 5 11:28:57 Bacterial vaginosis 010708328 Active 2024 Leticia Meyers MD [address] [place] [address], [phone], [facility] 5 07:11:12 Anovulation 68488505 Active 2024 Leticia Meyers MD [address] [place] [address], [id number], [facility] 5 15:14:58 Problem Notes None recorded. Procedures Surgical History Date Name Laterality Status Provider Name and Address Organization Details Recorded Time Date of Last Pap Smear completed Swapna Laird [employer] 08/11/2023 13:36:16 extraction of wisdom tooth completed Lilly Daniel [facility]. 09/13/2023 13:48:47 Imaging Results None recorded. Procedure Notes None recorded. Medical Equipment None Reported. Allergies Allergen ID Allergen Name Allergen Category Reaction Reaction Severity Criticality Documentation Date Start Date Code Code System Note Provider Name and Address Organization Details Recorded Time 03278 Product containin g penicilli n (product) medicatio n rash Not available Not available 08/11/2023 40112 8001 SNOMED Swapna Sparksdenise tapia [facility]. 13:35:29 Medications Name Sig Start Date Stop Date Status Note LastModified by Organization Details LastModified Time metronidazo le 500 mg tablet Take 1 tablet twice a day by oral route for 7 days. 06/08 completed Not Available Not Available Not Available Provera 10 mg tablet Take 1 tablet every day by oral route. 01/12 completed Not Available Not Available Not Available letrozole 2.5 mg tablet Take 3 tablets every day by oral route for 5 days. 09/29 completed Not Available Not Available Not Available metformin ER 750 mg tablet,exte nded release 24 hr 02/10 completed Not Available Not Available Not Available Ovidrel 250 mcg/0.5 mL subcutaneou s syringe Inject 0.5 mL every day by subcutane ous route for 1 day. 09/29 completed Not Available Not Available Not Available metformin ER 500 mg tablet,exte nded release 24hr (osmotic) Take 3 tablets every day by oral route. 09/29 completed Not Available Not Available Not Available metformin 1500 mg once daily 09/29 completed Not Available Not Available Not Available Ozempic 0.25 mg or 0.5 mg (2 mg/1.5 mL) subcutaneou s pen injector Inject 0.5 mg every week by subcutane ous route for 28 days. 09/29 completed Not Available Not Available Not Available Ozempic 0.25 mg or 0.5 mg (2 mg/3 mL) subcutaneou s pen injector 09/29 completed Not Available Not Available Not Available Vitals Date Recorded Body height Body mass index (BMI) Body weight Heart rate Oxygen saturation Oxygen saturation in Arterial blood by Pulse oximetry Systolic And Diastolic Provider Name and Address Organization Details Last Updated DateTime 5 154.94 cm 50.9 kg/m2 797555. 75 g 102 /min 97 % 97 % 121/82 mm[Hg] Graciela Puga [facility] [employer] 5 09:21:00 Date Recorded Body height Body mass index (BMI) Body weight Heart rate Systolic And Diastolic Provider Name and Address Organization Details Last Updated DateTime 02/16/2024 154.94 cm 50.2 kg/m2 072846.1 3 g 98 /min 124/74 mm[Hg] Ned PageLever 02/16/2024 10:30:59 Date Recorded Body height Body mass index (BMI) Body weight Heart rate Oxygen saturation Oxygen saturation in Arterial blood by Pulse oximetry Systolic And Diastolic Provider Name and Address Organization Details Last Updated DateTime 5 154.94 cm 50.1 kg/m2 183108. 98 g 118 /min 100 % 100 % 150/94 mm[Hg] Ned PageLever 5 15:19:11 Date Recorded Body height Body mass index (BMI) Body weight Heart rate Oxygen saturation Oxygen saturation in Arterial blood by Pulse oximetry Systolic And Diastolic Provider Name and Address Organization Details Last Updated DateTime 5 154.94 cm 50.8 kg/m2 721749. 91 g 114 /min 97 % 97 % 142/81 mm[Hg] JOSE MANUEL COLUNGA [facility] 5 08:17:28 Date Recorded Body height Body mass index (BMI) Body weight Heart rate Oxygen saturation Oxygen saturation in Arterial blood by Pulse oximetry Systolic And Diastolic Provider Name and Address Organization Details Last Updated DateTime 5 154.94 cm 50.9 kg/m2 650361. 05 g 100 /min 97 % 97 % 123/83 mm[Hg] Graciela Puga [facility] 5 16:04:07 Social History Question Answer Notes LastModified by Organizat ion Details LastModified Time Tobacco Smoking Status Never Smoker Swapna tapia, [facility] [employer] 08/11/2023 13:35:29 Do You Have An Advance Directive? No Information not available 08/11/2023 Is Your Home Air Conditioned? Yes Information not available 08/11/2023 If You Are , What Was Your Level Of Alcohol Consumption Prior To ? None [email or web address] Information not available 09/13/2023 Do You Wear A Helmet When Biking? Yes Information not available 08/11/2023 Are You Blind Or Do You Have Difficulty Seeing? No Information not available 08/11/2023 What Is Your Level Of Caffeine Consumption? Moderate Information not available 08/11/2023 In The 14 Days Before Symptom Onset, Have You Had Close Contact With A Laboratory-confir med COVID-19 While That Case Was Ill? No Information not available 08/11/2023 In The 14 Days Before Symptom Onset, Have You Had Close Contact With A Person Who Is Under Investigation For COVID-19 While That Person Was Ill? No Information not available 08/11/2023 Have You Been To An Area Known To Be High Risk For COVID-19? No Information not available 08/11/2023 Are You Deaf Or Do You Have Serious Difficulty Hearing? No Information not available 08/11/2023 What Type Of Diet Are You Following? DIABETIC Information not available 08/11/2023 Have There Been Any Changes To Your Family Or Social Situation? No Information no t available 08/11/2023 Are There Any Guns Present In Your Home? No Information not available 08/11/2023 Which Of Your Hands Is Dominant? Right Information not available 08/11/2023 What Is Your Home Situation? Other Information not available 08/11/2023 Do You Have A Medical Power Of Clinical Account Liaison? No Information not available 08/11/2023 What Was The Date Of Your Most Recent Tobacco Screening? 09/29/2024 [email or web address] Information not available 09/29/2024 Do You Have Any Pets? Yes Information not available 08/11/2023 Do You Use Protection During Sex? No Information not available 08/11/2023 Do You Use Protection Against STDs? No Information not available 06/08/2024 What Is Your Relationship Status? Information not available 08/11/2023 Have You Repeated Any Grades? No Information not available 08/11/2023 Do You Use Your Seat Belt Or Car Seat Routinely? Yes Information not available 08/11/2023 Are You Sexually Active? Yes Information not available 08/11/2023 Do You Have Any Siblings? 1 Sister Information not available 08/11/2023 Do You Have Smoke And Carbon Monoxide Detectors In Your Home? Yes Information not available 08/11/2023 Are You Passively Exposed To Smoke? No Information no t available 08/11/2023 Are There Any Smokers In Your House? No Information not available 08/11/2023 Do You Participate In Social Media? Yes [email or web address] Information not available 02/11/2024 Do You Use Sunscreen Routinely? Yes Information not available 08/11/2023 Has Tobacco Cessation Counseling Been Provided? Yes Information not available 06/08/2024 On What Date Was Tobacco Cessation Counseling Provided? 09/29/2024 Information not available 09/29/2024 Have You Recently Traveled Abroad? No Information not available 08/11/2023 Do You Have Difficulty Walking Or Climbing Stairs? No Information not available 08/11/2023 What Contraceptive Method Was Reported At Start Of This Visit? None Information not available 06/08/2024 Do You Have Any Dietary Restrictions? Yes Information not available 02/11/2024 What Is Your Reason For Having No Contraceptive Method At Start Of This Visit? Seeking Information not available 06/08/2024 Sex: Female Functional Status Question Answer Note LastModified by Organizat ion Details LastModified Time Do you use any illicit or recreational drugs? No Information not available 08/11/2023 Do you or have you ever used any other forms of tobacco or nicotine? No [email or web address] Information not available 09/13/2023 What is your level of alcohol consumption? None [email or web address] Information not available 09/13/2023 Are you currently employed? No Information not available 08/11/2023 Do you have transportation difficulties? No [email or web address] Information not available 02/11/2024 Are you able to walk independently without assistance or assistive devices? YESWOREST [email or web address] Information not available 09/13/2023 Do you have difficulty doing errands alone? No Information not available 08/11/2023 Are you able to care for yourself independently? Yes Information not available 08/11/2023 Do you have difficulty dressing, bathing, grooming, or toileting? No Information not available 08/11/2023 What is your exercise level? Occasional Information not available 08/11/2023 Mental Status Question Answer Note LastModified by Organizat ion Details LastModified Time Do you feel stressed (tense, restless, nervous, or anxious, or unable to sleep at night)? [id number] [email or web address] Information not available 02/11/2024 Do you have difficulty concentrating, remembering or making decisions? No Information no t available 08/11/2023 Are you or have you been involved with bullying? No Information not available 08/11/2023 Family History Relationship Description Onset Age of this Age Resolved Age Notes LastModified by Organization Details LastModified Time Mother Depressive disorder Not available 2023 13:35:29 Maternal Grandmother Diabetes mellitus Not available 2023 13:35:29 Medical History Condition Response Emergency room visit since last appointm ent. N Anxiety Disorder N Obesity Y Acid Reflux (GERD) N Headaches N Allergies/Hayfever N Hospitalizations N Acne N ADD/ADHD N Diabetes Y Gynecological History Statement/Question Response Abnormal Pap N Flow Moderate Date of LMP 07/08/2023 On BCP's at Conception? N STIs/STDs N HPV Vaccine Y Duration of Flow (days) 6 Most Recent Mammogram Age at Menarche 8 Current Control Method Seeking Pre gnancy Age at First Child 22 Sexually Active? Y Menses Monthly N Date of Last Pap Smear 08/03/2023 Sexual Problems? N LMP Definite Obstetrics History GPAL:G 1 P 1 0 0 1 Type Value Full Term 1 Living 1 Total 1 Immunizations Vaccine Type Date Status Note Provider Cabrera irwin and Address Organization Details Recorded Time Influenza, split virus, trivalent, preservative 4 completed Leticia Meyers MD [address] [place] [address], [phone], [facility] [employer] 01/14/2024 07:52:40 Past Encounters Encounter ID Performer Location Encounter Start Date Encounter Closed Date Diagnosis/Indication Diagnosis SNOMED-CT Code Diagnosis ICD10 Code Diagnosis IMO Codes Diagnosis Note [id number] Carie Ramsay NP [address] [address] 08/11/2023 13:24:39 08/16/2023 11:28:53 Prediabetes 201921410 R73.03 Polycystic ovary syndrome 138558957 E28.2 Body mass index 30+ - obesity 795460014 Z68.42 [id number] Claribel Carmichael APRN [place] [address] [place] [address] 09/13/2023 13:37:11 09/13/2023 14:43:35 Female infertility 6587296 N97.9 Body mass index 40+ - severely obese 580924703 Z68.42 [id number] Leticia Meyers MD [address] [address] 01/13/2024 16:48:29 01/13/2024 18:04:05 Administration of influenza vaccine 41973729 Z23 Type 2 jona betes mellitus without complication 431491416 E11.9 Polycystic ovary syndrome 410278602 E28.2 Will check a serum day 21 progestero ne without any medication for ovulation induction. We reviewed that given her cycles have been regular q. 33 days she is likely ovulating. We reviewed that the best time to conceive is cycle day 10 today 20. They have been using home ovulation predictor kits. She will call with the onset of her next menses and we will schedule a transvagin al ultrasound for follicle sizing based on her next LMP. Body mass index 40+ - severely obese 760379866 Z68.43 We spent a long time reviewing risks with obesity and and trying to optimize her weight prior to . Severe morbidity included hemorrhage requiring transfusio n; serious cardiac, respirator y, cerebrovas cular, or hematologi c complicati ons; venous thrombosis /embolism; sepsis; shock; liver or kidney failure; anesthesia -related complicati ons; and uterine rupture. r gn t people with MN 5 0 kg/m2 have a significan tly increased risk of adverse maternal and outcomes compared with those with B <50 kg/m2. She would like to restart a GLP-1 and believes that ozempic is covered by her insurance. [id number] Carie Ramsay NP [address] [address] 02/11/2024 08:54:33 02/11/2024 10:22:09 Adult health examination 551506106 Z00.00 Body mass index 40+ - severely obese 476683934 Z68.43 Prediabetes 881389820 R7 3.03 Screening for cardiovascular system disease 567376025 Z13.6 [id number] Leticia Meyers MD [facility] [address] [place] [address] 02/16/2024 10:08:08 02/18/2024 09:02:44 Type 2 diabetes mellitus without complication 623181929 E11.9 Abnormal u terine bleeding 4358647849 9100 N93.9 [id number] Leticia Meyers MD [facility] [address] [place] [address] 02/21/2024 15:10:26 02/21/2024 17:45:18 Abnormal uterine bleeding 6174942284 9100 N93.9 Female infertility 69779 08 N97.9 [id number] Leticia Meyers MD [facility] [address] [place] [address] 06/08/2024 07:54:28 06/12/2024 08:49:22 Body mass index 40+ - severely obese 299794588 Z68.43 [id number] We spent a long time reviewing risks with obesity and and trying to optimize her weight prior to . Severe morbidity included hemorrhage requiring transfusio n; serious cardiac, respirator y, cerebrovas cular, or hematologi c complicati ons; venous thrombosis /embolism; sepsis; shock; liver or kidney failure; anesthesia -related complicati ons; and uterine rupture. r gn t people with MN 5 0 kg/m2 have a significan tly increased risk of adverse maternal and outcomes compared with those with B <50 kg/m2. Polycystic ovary syndrome 021200500 E28.2 Will check a serum day 21 progestero ne [id number] Carie Ramsay NP [address] [address] 09/29/2024 15:50:59 10/06/2024 11:13:01 Preprocedural examination done 0349302794 61250 Z01.818 708347 Body mass index 40+ - severely obese 631436135 Z68.43 [id number] Health Concerns Section Related Observation LastModified by Organization Detai ls LastModified Time None Recorded Concern Status LastModified by Organization Details LastModified Time None Recorded Advance Directives Directive N: Payers Insurance Date Sequence Insurance Name Policy Number Policy Parker Covered Member ID Parker Member ID Guarantor Name 08/15/2024 1 [facility] [id number] Jonny Dawson [id number] Jonny Dawson 08/11/2023 1 *SELF PAY* Sa prudence Dawson 10/10/2024 1 [employer] [id number] Love Dawson [id number] Jonny Samir Notes Date Note Type Note Provider Name and Address Organization Details Recorded Time 02/11/2024 text/html Patient presents for follow up. She is currently treating with women's health for fertility. She is due for fasting labs today. She has not had in about a year now. States she is on ozempic and tolerating well. States she started the ozempic a month ago. She has gained weight since starting it. States she can't tell a big difference yet. Carie Ramsay NP [address] [place] [address], [phone], [employer] 02/16/2024 12:58:20 02/16/2024 text/html ROS as noted in the HPI 28 yo presents for TVUS for a follicle scan for IUI. She has a dominant follicle on her left that is measuring 10.5mm. Will plan for IUI on 02/21/24. Ovidrel 36 hours prior. [facility] is closed today so we will try to call again tomorrow with the snow storm. We were able to get her HSG scheduled for later today. Otherwise normal TVUS. She is in a same sex relationship and is wanting to conceive. They have doing home insemination kits with semen provided by a male friend. She is having q 33 day cycles. She reports a h/o PCOS. She has a 5 y/o son that was conceived while she was in a heterosexual relationship with 3 rounds of clomid. Her current BMI 50 and she has T2DM. She states she has recently been working to lose weight, and her A1C is now less than 6. Says that she has been having monthly periods since Metformin was increased to 1500 mg daily. Periods are described as heavy and lasting 5-7 days. Has attempted one round of clomid in November 2023. Her serum progesterone on day 21 was < 10, but she does not feel as if she took the medication correctly. She did lose a significant amount a weight on a GLP-1 but had to discontinue due to cost and side effects. Leticia Meyers MD [address] [place], [phone], [employer] 02/16/2024 12:45:55 02/21/2024 text/html ROS as noted in the HPI 28 yo presents for first IUI with donor sperm. Normal semen analysis performed today by the donor. Recommended cycle day 21 serum progesterone. status post Ovidrel 36 hours prior. Normal HSG with bilateral tubal patency, normal TVUS. There was some abnormal discharge noted on today's exam, NuSwab obtained. She is in a same sex relationship. They have doing home insemination kits with semen provided by a male friend who has offered to be their donor. She is having q 33 day cycles. She reports a h/o PCOS. She has a 5 y/o son that was conceived while she was in a heterosexual relationship with 3 rounds of clomid. Her current BMI 50 and she has T2DM. She states she has recently been working to lose weight, and her A1C is now less than 6. Says that she has been having monthly periods since Metformin was increased to 1500 mg daily. Periods are described as heavy and lasting 5-7 days. Has attempted one round of clomid in November 2023. Her serum progesterone on day 21 was < 10, but she does not feel as if she took the medication correctly. She did lose a significant amount a weight on a GLP-1 but had to discontinue due to cost and side effects. We discussed holding the GLP-1's during the IUI phase. Leticia Meyers MD [address] [place] [address], [phone], [facility] 02/29/2024 08:53:23 06/08/2024 text/html ROS as noted in the HPI 28 yo presents for TVUS for a follicle scan for 2nd IUI. Cycle day 10. She has a dominant follicle on her left that is measuring 12 mm. She is in a same sex relationship and is wanting to conceive. They have doing home insemination kits with semen provided by a male friend. She is having q 33 day cycles, last 5-7 days, heavy. She reports a h/o PCOS. She has a 5 y/o son that was conceived while she was in a heterosexual relationship with 3 rounds of clomid. Her current BMI 50 and she has T2DM, A1c 5.8%. She had made lifestyle changes to lose weight and was making progress states she has recently been working to lose weight, but unfortunately she is up 3.6 lbs since her last visit. We discussed taking a break from trying to conceive if not this month to focus on her weight. Wants to restart her GLP-1. Regular menses. Cont Metformin was increased to 1500 mg daily. Recommended repeating A1c. Also h/o BV treated in Feb, recommended repeat Nuswab with IUI Wednesday. Leticia Meyers MD [address] [place] [address], [phone], [facility] 06/08/2024 09:08:34 09/29/2024 text/html Patient presents for pre-op appt prior to bariatric procedure. She has done all of her pre-op requirements through their office including labs, EKG, endocscopy. She feels ready to proceed wtih surgery. She has never been under general anesthesia but has not had any complications of conscious sedation. She is not on blood thinners. She has no recent infection or surgeries. Carie Ramsay NP [address] [place] [address], [phone], [facility] [employer] 10/04/2024 18:13:43 OBGyn Episode No OBEpisode recorded.
--- OUTSIDE RECORDS SUMMARY | 2024-12-08 11:57 | XMS_ITS | Continuity of Care Document ---
Author Organization [place] & Formerly [facility] Address [address] [place] [address] Care Team Providers Care Molder Inflated Ball Name Role Phone [facility] Primary Care Pro vider Assessment Encounter Date Assessment Date Assessment LastModified by Organization Details LastModified Time 11/08/2024 11/08/2024 Robotic duodenal switch All Risks, Complications and Alternatives were explained to the patient. They understand that there are many possible complications that may occur with bariatric surgery including but not limited to; bleeding, infection, staple line leak, injury to solid organ, injury to bowel, injury to bladder, injury to blood vessel, pneumonia, DVT, PE, , cardiac event, stricture, ulcer, non-healing of the staple line. They also understand that salvage determiner they may develop some of these problems as well as the risk of vitamin deficiencies, malnutrition and this may require further surgery or interventional procedures such as feeding tubes or re-operation for their healing. They have also been given an extensive surgical consent that explains these risks and complications and have acknowledged and signed that they understand these. They understand Weight loss surgery is a tool and that compliance is mandatory to not only be successful but to give them the best chance to avoid complications. They understand they must keep all recommended office follow up appointments and laboratory checks Patient will return to clinic for postoperative follow-up 1 week after surgery. [email or web address] Not available 11/08/2024 08:48:02 Plan of Treatment Reminders Order Date Submit Date Provider Last Modified By Organization Details Last Modified Time Details Appointments OV EST 20 2024 10:40A Alberto GTZ RD Not available Not available Not available OV EST 20 2024 08:40A M ARTUR Caballero Not available Not available Not available Lab CBC w/ auto diff 2024 025 [place] [facility], [address], [address], [place], [address], 11/09/2024 08:38:18 CMP, serum or plasma 2024 025 [place] [facility], [address], [address], [place], [address], 11/09/2024 08:38:19 HbA1c (hemoglob in A1c), blood 2024 025 [place] [facility], [address], [address], [place], [address], 11/09/2024 08:38:19 Referral None recorded. Procedures None recorded. Surgeries None recorded. Imaging None recorded. Medication Orders Neurontin 300 mg capsule 2024 025 [facility], [address], [address], 11/22/2024 05:01:39 Celebrex 100 mg capsule 2024 025 [facility], [address], [address], 11/22/2024 05:01:39 omeprazol e 20 mg capsule,d elayed release 2024 025 [facility], [address], [address], 11/08/2024 08:51:12 Patient TargetsNo targets recorded. Patient InstructionsNo instructions recorded. Reason for Referral None Reported. Results Created Date Observation Date Name Description Value Unit Range Abnormal Flag Note LastModifiedBy Organization Detail LastModifiedTime 11/09/19 25 11/09/2024 CBC WITH DIFFE RENTI AL/PL ATELE T WBC 9.3 x10e3 /uL 3.4-10 .8 normal Not Available [facility] ([facility]) [address] [place], [address], 11/09/2024 08:38:18 11/09/19 25 11/09/2024 CBC WITH DIFFE RENTI AL/PL ATELE T RBC 5.16 x10e6 /uL 3.77-5 .28 normal Not Available [facility] ([facility]) [address] [place], [address], 11/09/2024 08:38:18 11/09/1911/09/2024 CBC WITH DIFFE RENTI AL/PL ATELE T hemoglobin 14.1 g/dL 11.1-1 5.9 normal Not Available [facility] ([facility]) [address] [place], [address], 11/09/2024 08:38:18 11/09/1911/09/2024 CBC WITH DIFFE RENTI AL/PL ATELE T hematocrit 45.4 % 34.0-4 6.6 normal Not Available [facility] ([facility]) [address] [place], [address], 11/09/2024 08:38:18 11/09/19 25 11/09/2024 CBC WITH DIFFE RENTI AL/PL ATELE T MCV 88 fL 79-97 normal Not Available [facility] ([facility]) [address] [place], [address], 11/09/2024 08:38:18 11/09/1911/09/2024 CBC WITH DIFFE RENTI AL/PL ATELE T MCH 27.3 pg 26.6-3 3.0 normal Not Available [facility] ([facility]) [address] [place], [address], 11/09/2024 08:38:18 11/09/19 25 11/09/2024 CBC WITH DIFFE RENTI AL/PL ATELE T MCHC 31.1 g/dL 31.5-3 5.7 below low normal Not Available [facility] ([facility]) [address] [facility], [place], [address], 11/09/2024 08:38:18 11/09/19 25 11/09/2024 CBC WITH DIFFE RENTI AL/PL ATELE T RDW 13.2 % 11.7-1 5.4 Not Available [facility] ([facility]) [address] [facility], [place], [address], 11/09/2024 08:38:18 11/09/1911/09/2024 CBC WITH DIFFE RENTI AL/PL ATELE T platelets 384 x10e3 /uL 150-45 0 normal Not Available [facility] ([facility]) [address] [facility], [place], [address], 11/09/2024 08:38:18 11/09/1911/09/2024 CBC WITH DIFFE RENTI AL/PL ATELE T neutrophils 58 % not estab. normal Not Available [facility] ([facility]) [address] [facility], [place], [address], 11/09/2024 08:38:18 11/09/19 25 11/09/2024 CBC WITH DIFFE RENTI AL/PL ATELE T lymphs 35 % not estab. normal Not Available [facility] ([facility]) [address] [facility], [place], [address], 11/09/2024 08:38:18 11/09/19 25 11/09/2024 CBC WITH DIFFE RENTI AL/PL ATELE T monocytes 5 % not estab. normal Not Available [facility] ([facility]) [address] [place], [address], 11/09/2024 08:38:18 11/09/19 25 11/09/2024 CBC WITH DIFFE RENTI AL/PL ATELE T eos 2 % not estab. normal Not Available [facility] ([facility]) [address] [facility], [place], [address], 11/09/2024 08:38:18 11/09/1911/09/2024 CBC WITH DIFFE RENTI AL/PL ATELE T basos 0 % not estab. normal Not Available [facility] ([facility]) [address] [facility], [place], [address], 11/09/2024 08:38:18 11/09/1911/09/2024 CBC WITH DIFFE RENTI AL/PL ATELE T immature cells BODY WELDER Not Available [facility] ([facility]) [address] [facility], [place], [address], 11/09/2024 08:38:18 11/09/19 25 11/09/2024 CBC WITH DIFFE RENTI AL/PL ATELE T neutrophils (absolute) 5.3 x10e3 /uL 1.4-7. 0 normal Not Available [facility] ([facility]) [address] [facility], [place], [address], 11/09/2024 08:38:18 11/09/1911/09/2024 CBC WITH DIFFE RENTI AL/PL ATELE T lymphs (absolute) 3.2 x10e3 /uL 0.7-3. 1 above high normal Not Available [facility] ([facility]) [address] [place], [address], 11/09/2024 08:38:18 11/09/1911/09/2024 CBC WITH DIFFE RENTI AL/PL ATELE T monocytes(ab solute) 0.5 x10e3 /uL 0.1-0. 9 normal Not Available [facility] ([facility]) [address] [place], [address], 11/09/2024 08:38:18 11/09/19 25 11/09/2024 CBC WITH DIFFE RENTI AL/PL ATELE T eos (absolute) 0.2 x10e3 /uL 0.0-0. 4 normal Not Available [facility] ([facility]) [address] [facility], [place], [address], 11/09/2024 08:38:18 11/09/19 25 11/09/2024 CBC WITH DIFFE RENTI AL/PL ATELE T baso (absolute) 0.0 x10e3 /uL 0.0-0. 2 normal Not Available [facility] ([facility]) [address] [facility], [place], [address], 11/09/2024 08:38:18 11/09/1911/09/2024 CBC WITH DIFFE RENTI AL/PL ATELE T immature granulocytes 0 % not estab. Not Available [facility] ([facility]) [address] [facility], [place], [address], 11/09/2024 08:38:18 11/09/1911/09/2024 CBC WITH DIFFE RENTI AL/PL ATELE T immature grans (abs) 0.0 x10e3 /uL 0.0-0. 1 Not Available [facility] ([facility]) [address] [facility], [place], [address], 11/09/2024 08:38:18 11/09/19 25 11/09/2024 CBC WITH DIFFE RENTI AL/PL ATELE T NRBC BODY WELDER Not Available [facility] ([facility]) [address] [facility], [place], [address], 11/09/2024 08:38:18 11/09/1911/09/2024 CBC WITH DIFFE RENTI AL/PL ATELE T hematology comments: BODY WELDER Not Available [facility] ([facility]) [address] [facility], [place], [address], 11/09/2024 08:38:18 11/09/19 25 11/08/2024 COMP. METAB OLIC PANEL (14) interpretati on: COMMEN T GFR estim ate at the follo wing level for >or=3 month s is class ified as follo ws: GFR WITH KIDNE Y DAMAG E WITHO UT KIDNE Y DAMAG E >or=9 0 Stage 1 Sanjuanita l 60-89 Stage 2 Decr eased GFR 30-59 Stage 3 Stage 3 15-29 Stage 4 Stage 4 <15 (or dialy sis) Stage 5 Stage 5 Estim ated GFR will over estim ate true GFR if serum creat inine is risin g as in acute renal failu re and will under estim ate true GFR if serum creat inine is decli adamaris as in resol ving acute renal failu re. Addit ional infor matio n may be found at www.k doqi. org. Not Available [facility] ([facility]) [address] [place], [address], 11/09/2024 08:38:19 11/09/1911/09/2024 COMP. METAB OLIC PANEL (14) glucose 102 mg/dL 70-99 above high normal Not Available [facility] ([facility]) [address] [place], [address], 11/09/2024 08:38:19 11/09/1911/09/2024 COMP. METAB OLIC PANEL (14) BUN 9 mg/dL 6-20 normal Not Available [facility] ([facility]) [address] [place], [address], 11/09/2024 08:38:19 11/09/1911/09/2024 COMP. METAB OLIC PANEL (14) creatinine 0.59 mg/dL 0.57-1 .00 normal Not Available [facility] ([facility]) [address] [place], [address], 11/09/2024 08:38:19 11/09/1911/09/2024 COMP. METAB OLIC PANEL (14) eGFR 123 mL/mi n/1.7 3 >59 normal Not Available [facility] ([facility]) [address] [place], [address], 11/09/2024 08:38:19 11/09/1911/09/2024 COMP. METAB OLIC PANEL (14) BUN/creatini ne ratio 15 9-23 normal Not Available [facility] ([facility]) [address] [facility] [place], [address], 11/09/2024 08:38:19 11/09/1911/09/2024 COMP. METAB OLIC PANEL (14) sodium 140 mmol/ L 134-14 4 normal Not Available [facility] ([facility]) [address] [facility] [place], [address], 11/09/2024 08:38:19 11/09/1911/09/2024 COMP. METAB OLIC PANEL (14) potassium 4.3 mmol/ L 3.5-5. 2 normal Not Available [facility] ([facility]) [address] [facility], [place], [address], 11/09/2024 08:38:19 11/09/1911/09/2024 COMP. METAB OLIC PANEL (14) chloride 101 mmol/ L 96-106 normal Not Available [facility] ([facility]) [address] [facility], [place], [address], 11/09/2024 08:38:19 11/09/1911/09/2024 COMP. METAB OLIC PANEL (14) carbon dioxide, total 22 mmol/ L 20-29 normal Not Available [facility] ([facility]) [address] [facility] [place], [address], 11/09/2024 08:38:19 11/09/1911/09/2024 COMP. METAB OLIC PANEL (14) calcium 9.9 mg/dL 8.7-10 .2 normal Not Available [facility] ([facility]) [address] [facility] [place], [address], 11/09/2024 08:38:19 11/09/19 25 11/09/2024 COMP. METAB OLIC PANEL (14) protein, total 7.3 g/dL 6.0-8. 5 normal Not Available [facility] ([facility]) [address] [facility] [place], [address], 11/09/2024 08:38:19 11/09/19 25 11/09/2024 COMP. METAB OLIC PANEL (14) albumin 4.5 g/dL 3.9-4. 9 normal Not Available [facility] ([facility]) [address] [facility], [place], [address], 11/09/2024 08:38:19 11/09/1911/09/2024 COMP. METAB OLIC PANEL (14) globulin, total 2.8 g/dL 1.5-4. 5 Not Available [facility] ([facility]) [address] [facility] [place], [address], 11/09/2024 08:38:19 11/09/1911/09/2024 COMP. METAB OLIC PANEL (14) bilirubin, total 1.1 mg/dL 0.0-1. 2 normal Not Available [facility] ([facility]) [address] [facility] [place], [address], 11/09/2024 08:38:19 11/09/19 25 11/09/2024 COMP. METAB OLIC PANEL (14) alkaline phosphatase 87 IU/L 41-116 normal Not Available [facility] ([facility]) [address] [facility] [place], [address], 11/09/2024 08:38:19 11/09/1911/09/2024 COMP. METAB OLIC PANEL (14) AST (SGOT) 20 IU/L 0-40 normal Not Available [facility] ([facility]) [address] [facility], [place], [address], 11/09/2024 08:38:19 11/09/19 25 11/09/2024 COMP. METAB OLIC PANEL (14) ALT (SGPT) 25 IU/L 0-32 normal Not Available [facility] ([facility]) [address] [facility], [place], [address], 11/09/2024 08:38:19 11/09/19 25 11/09/2024 HEMOG LOBIN A1C hemoglobin A1C 5.9 % 4.8-5. 6 above high normal Predi abete s: 5.7 - 6.4 Diabe jeffrey: >6.4 Glyce [place] contr ol for adult s with diabe jeffrey: <7.0 Not Available [facility] ([facility]) [address] [facility], [place], [address], 11/09/2024 08:38:19 Result Notes None recorded. Problems Name Problem SNOMED Code Status Onset Date Resolution Date Notes Provider Name and Address Organization Details Recorded Time Prediabete s 769180814 Active 2024 WHIT QUEVEDO, STEPHEN [address], [place], [address] , [place] - [place] - [place] & [place] 5 08:52:53 Polycystic ovary syndrome 267570058 Active 2024 WHIT QUEVEDO, STEPHEN [address] [facility], [place], [address] , [place] - [place] - [place] & [place] 5 08:52:58 Severe obesity 0873630429141 4 Active 2024 WHIT QUEVEDO, STEPHEN [address] [facility], [place], [address] , [place] - [place] - [place] & [place] 5 08:53:45 Problem Notes None recorded. Procedures Surgical History Date Name Laterality Status Provider Name and Address Organization Details Recorded Time 11/13 bypass of duodenum completed Maine Mccoy [place] - [place] - [place] & [place] 5 08:17:26 09/21 ESOPHAGOGASTRODUODENOSCOPY (SURG) completed Ian keith [place] - [place] - [place] & [place] 13:07:00 02/08 extraction of wisdom tooth completed CHRISTINA QUEVEDO, BODY WELDER [address] [facility], [place], [address] , [facility] & [place] 10:38:14 Imaging Results None recorded. Procedure Notes None recorded. Medical Equipment None Reported. Allergies Allergen ID Allergen Name Allergen Category Reaction Reaction Severity Criticality Documentation Date Start Date Code Code System Note Provider Name and Address Organization Details Recorded Time 778748 amoxicill in medicatio n hives Not available Not available 08/31/2024 723 RxNorm Lilly Velazquez [facility], [facility] & [place] 08:14:49 Medications Name Sig Start Date Stop [...] Not Avai lable Vitals Date Recorded Body height Body temperature Body mass index (BMI) Body weight Heart rate Systolic And Diastolic Provider Name and Address Organization Details Last Updated DateTime 154.94 cm 97 [degF] 49.7 kg/m2 778751. 07 g 95 /min 123/79 mm[Hg] Ian Sharp-Bec helio [facility] & [place] 08:27:35 Social History None recorded. Functional Status Question Answer Note LastModified by Organizat ion Details LastModified Time Do you use any illicit or recreational drugs? No [email or web address] Information not available 08/31/2024 What is your level of alcohol consumption? None [email or web address] Information not available 08/31/2024 Mental Status None [...] ICD10 Code Diagnosis IMO Codes Diagnosis Note [id number] MEHREEN GTZ RD [facility] [address] [place] [address] [address] [place] [address] 10/23/2024 08:56:55 10/23/2024 09:43:22 Diet education 58702075 Z71.3 183110 [id number] [facility] [address] [place] [address] [address] [place] [address] 11/08/2024 07:58:54 11/08/2024 19:09:07 Morbid obesity 790016530 E66.01 Pre-surger y evaluation 186474500 Z01.818 Postoperative pain 96602 9007 G89.18 Polycystic ovary syndrome 230556374 E28.2 663045 Prediabetes 432942620 R7 3.03 180749 Health Concerns Section Related Observation LastModified by Organization Detai ls LastModified Time None Recorded Concern Status LastModified by Organization Details LastModified Time None Recorded Payers Encounter Date Sequence Insurance Name Policy Number Policy Parker Covered Member ID Parker Member ID Guarantor Name 11/08/2024 1 HEENA Dawson [id number] Yadira Dawson Notes Date Note Type Note Provider Name and Address Organization Details Recorded Time 11/08/2024 text/html ROS as noted in the HPI The patient is here today to schedule bariatric surgery which is Robotic Duodenal switch. They have undergone all required pre-operative work up and screening and have been approved to proceed with surgery. They deny any recent changes in their medical history since originally seen for their intake history and physical exam. They have undergone a 1 hour education class by myself reviewing the entire surgical process what to expect pre-operatively, during their hospital stay and when they are discharged home. They have had the opportunity to ask questions and all questions have been addressed. They have also undergone a class with the data abstractor and have received clear instructions on what is required regarding fluid intake, protein intake and vitamin consumption postoperatively. The patient is being managed by their PCP for their PCOS and prediabetes and is currently stable. Asif Sharp, [address] , [place], [address], [facility] - [place] - [place] & [place] 11/08/2024 10:24:33 OBGyn Episode No OBEpisode recorded.
--- OUTSIDE RECORDS SUMMARY | 2024-12-08 11:58 | XMS_ITS | Data Portability ---
Author Organization [facility] [place] [facility] ADMIN Address [address] [place] [id number] Care Team Providers Care Market Director Name Role Phone [facility] Primary Care Pro vider Assessment [...] scheduled or PRN. Not available 10/23/2024 09:16:53 11/08/2024 11/08/2024 Robotic duodenal switch All Risks, [...] the staple line. They also understand that custodial they may develop some of these problems [...] for postoperative follow-up 1 week after surgery. [email or web address] Not available 11/08/2024 08:48:02 11/21/2024 11/21/2024 The patient is doing well. The patient is instructed to continue their vitamins as directed. They are to continue advancing their diet as directed. They may start exercising but keep lifting less than 25 pounds for 2 more weeks. I will see them back in 3 weeks or one month from surgery. We will order their first set of labs at that time. I summarized the expectations for the upcoming year. We will check labs at their one month visit from surgery, 3 months from surgery as well as at 6, 9, and 12 months from surgery. These labs will be ordered on the day of their appointment. They have the option to come to the appointment fasting and labs can be drawn that day at the hospital. If not, I expect these labs to be drawn within the week of ordering them. If they choose to have them drawn at another institution they are to make sure that the labs are sent to my office. These labs will be reviewed once received and the patient will be called with any significant abnormalities and how they should be addressed. If they would like a copy of their labs they are welcome to request these and we will send a copy to them. If they're labs and vitamin levels are adequate at 12 months then they will need lab checks every 6mth-12mth. They consent to understand this plan and agree to comply. [email or web address] Not available 11/21/2024 08:14:46 Plan of Treatment Reminders Order Date Submit Date Provider Last Modified By Organization Details Last Modified Time Details Appointments OV EST 20 2024 10:40A M MEHREEN [address]Z RD Not available Not available Not available OV EST 20 2024 08:40A ARTUR Chung Not available Not available Not available Lab CBC w/ auto diff 2024 025 [facility], [address], [address], [place], [address], 11/09/2024 08:38:18 CMP, serum or plasma 2024 025 [place] [facility], [address], [address], [place], [address], 11/09/2024 08:38:19 HbA1c (hemoglob in A1c), blood 2024 025 [place] [facility], [address], [address], [place], [address], 11/09/2024 08:38:19 Referral None recorded. Procedures None recorded. Surgeries None recorded. Imaging None recorded. Medication Orders Neurontin 300 mg capsule 2024 025 [facility], [address], [address], 11/22/2024 05:01:39 Celebrex 100 mg capsule 2024 025 [facility], [address], [address], 11/22/2024 05:01:39 omeprazol e 20 mg capsule,d elayed release 2024 025 [facility], [address], [address], 11/08/2024 08:51:12 Patient Targets Encounter Date Encounter Id Patient Goals Patient Target Last Modified By Organization Details Last Modified Time 08/31/2024 [id number] 1. Download [employer] and start keeping food records 2. Look for food triggers and replace with healthy snacks 3. Wean of diet soft drinks 4. Eat 3-6 times a day 5. Review manual for meal and snack ideas 6. Physical activity 3 times a week for 20 min [email or web address] Not available 08/31/2024 12:51:35 09/25/2024 [id number] 1. Download [employer] and start keeping food records 2. Look for food triggers and replace with healthy snacks 3. Wean of diet soft drinks 4. Eat 3-6 times a day 5. Review manual for meal and snack ideas 6. Physical activity 3 times a week for 20 min [email or web address] Not available 09/25/2024 11:17:43 10/23/2024 [id number] 1. Download [employer] and start keeping food records 2. Look for food triggers and replace with healthy snacks 3. Wean of diet soft drinks 4. Eat 3-6 times a day 5. Review manual for meal and snack ideas 6. Physical activity 3 times a week for 20 min [email or web address] Not available 10/23/2024 09:16:31 Patient InstructionsNo instructions recorded. Reason for Referral None Reported. Results Created Date Observation Date Name Description Value Unit Range Abnormal Flag Note LastModifiedBy Organization Detail LastModifiedTime 09/01/1909/01/2024 FE+TI BC+FE R iron bind.cap.(TI BC) 392 ug/dL 250-45 0 normal Not Available [facility] ([facility]) [address] [place], [address], 09/05/2024 18:37:38 09/01/19 25 09/01/2024 FE+TI BC+FE R UIBC 331 ug/dL 131-42 5 normal Not Available [facility] ([facility]) [address] [place], [address], 09/05/2024 18:37:38 09/01/19 25 09/01/2024 FE+TI BC+FE R iron 61 ug/dL 27-159 normal Not Available [facility] ([facility]) [address] [place], [address], 09/05/2024 18:37:38 09/01/19 25 09/01/2024 FE+TI BC+FE R iron saturation 16 % 15-55 normal Not Available [facility] ([facility]) [address] [place], [address], 09/05/2024 18:37:38 09/01/1909/01/2024 FE+TI BC+FE R ferritin 26 NG/mL 15-150 normal Not Available [facility] ([facility]) [address] [place], [address], 09/05/2024 18:37:38 09/01/1909/01/2024 TSH+F REE T4 TSH 1.730 uIU/m L 0.450- 4.500 normal Not Available [facility] ([facility]) [address] [place], [address], 09/05/2024 18:37:39 09/01/1909/01/2024 TSH+F REE T4 T4,free(dire ct) 1.02 NG/dL 0.82-1 .77 normal Not Available [facility] ([facility]) [address] [place], [address], 09/05/2024 18:37:39 09/01/1909/01/2024 CBC WITH DIFFE RENTI AL/PL ATELE T WBC 9.6 x10e3 /uL 3.4-10 .8 normal Not Available [facility] ([facility]) [address] [place], [address], 09/05/2024 18:37:39 09/01/19 25 09/01/2024 CBC WITH DIFFE RENTI AL/PL ATELE T RBC 5.08 x10e6 /uL 3.77-5 .28 normal Not Available [facility] ([facility]) [address] [place], [address], 09/05/2024 18:37:39 09/01/1909/01/2024 CBC WITH DIFFE RENTI AL/PL ATELE T hemoglobin 14.4 g/dL 11.1-1 5.9 normal Not Available [facility] ([facility]) [address] [place], [address], 09/05/2024 18:37:39 09/01/19 25 09/01/2024 CBC WITH DIFFE RENTI AL/PL ATELE T hematocrit 45.2 % 34.0-4 6.6 normal Not Available [facility] ([facility]) [address] [place], [address], 09/05/2024 18:37:39 09/01/19 25 09/01/2024 CBC WITH DIFFE RENTI AL/PL ATELE T MCV 89 fL 79-97 normal Not Available [facility] ([facility]) [address] [place], [address], 09/05/2024 18:37:39 09/01/19 25 09/01/2024 CBC WITH DIFFE RENTI AL/PL ATELE T MCH 28.3 pg 26.6-3 3.0 normal Not Available [facility] ([facility]) [address] [place], [address], 09/05/2024 18:37:39 09/01/19 25 09/01/2024 CBC WITH DIFFE RENTI AL/PL ATELE T MCHC 31.9 g/dL 31.5-3 5.7 normal Not Available [facility] ([facility]) [address] [place], [address], 09/05/2024 18:37:39 09/01/19 25 09/01/2024 CBC WITH DIFFE RENTI AL/PL ATELE T RDW 13.1 % 11.7-1 5.4 Not Available [facility] ([facility]) [address] [place], [address], 09/05/2024 18:37:39 09/01/19 25 09/01/2024 CBC WITH DIFFE RENTI AL/PL ATELE T platelets 345 x10e3 /uL 150-45 0 normal Not Available [facility] ([facility]) [address] [place], [address], 09/05/2024 18:37:39 09/01/1909/01/2024 CBC WITH DIFFE RENTI AL/PL ATELE T neutrophils 67 % not estab. normal Not Available [facility] ([facility]) [address] [facility], [place], [address], 09/05/2024 18:37:39 09/01/1909/01/2024 CBC WITH DIFFE RENTI AL/PL ATELE T lymphs 26 % not estab. normal Not Available [facility] ([facility]) [address] [facility], [place], [address], 09/05/2024 18:37:39 09/01/1909/01/2024 CBC WITH DIFFE RENTI AL/PL ATELE T monocytes 5 % not estab. normal Not Available [facility] ([facility]) [address] [facility], [place], [address], 09/05/2024 18:37:39 09/01/1909/01/2024 CBC WITH DIFFE RENTI AL/PL ATELE T eos 2 % not estab. normal Not Available [facility] ([facility]) [address] [facility], [place], [address], 09/05/2024 18:37:39 09/01/1909/01/2024 CBC WITH DIFFE RENTI AL/PL ATELE T basos 0 % not estab. normal Not Available [facility] ([facility]) [address] [facility], [place], [address], 09/05/2024 18:37:39 09/01/19 25 09/01/2024 CBC WITH DIFFE RENTI AL/PL ATELE T immature cells ACID BATH MIXER Not Available [facility] ([facility]) [address] [place], [address], 09/05/2024 18:37:39 09/01/19 25 09/01/2024 CBC WITH DIFFE RENTI AL/PL ATELE T neutrophils (absolute) 6.4 x10e3 /uL 1.4-7. 0 normal Not Available [facility] ([facility]) [address] [facility], [place], [address], 09/05/2024 18:37:39 09/01/19 25 09/01/2024 CBC WITH DIFFE RENTI AL/PL ATELE T lymphs (absolute) 2.5 x10e3 /uL 0.7-3. 1 normal Not Available [facility] ([facility]) [address] [facility], [place], [address], 09/05/2024 18:37:39 09/01/19 25 09/01/2024 CBC WITH DIFFE RENTI AL/PL ATELE T monocytes(ab solute) 0.5 x10e3 /uL 0.1-0. 9 normal Not Available [facility] ([facility]) [address] [facility], [place], [address], 09/05/2024 18:37:39 09/01/19 25 09/01/2024 CBC WITH DIFFE RENTI AL/PL ATELE T eos (absolute) 0.2 x10e3 /uL 0.0-0. 4 normal Not Available [facility] ([facility]) [address] [facility], [place], [address], 09/05/2024 18:37:39 09/01/19 25 09/01/2024 CBC WITH DIFFE RENTI AL/PL ATELE T baso (absolute) 0.0 x10e3 /uL 0.0-0. 2 normal Not Available [facility] ([facility]) [address] [place], [address], 09/05/2024 18:37:39 09/01/19 25 09/01/2024 CBC WITH DIFFE RENTI AL/PL ATELE T immature granulocytes 0 % not estab. Not Available [facility] ([facility]) [address] [place], [address], 09/05/2024 18:37:39 09/01/19 25 09/01/2024 CBC WITH DIFFE RENTI AL/PL ATELE T immature grans (abs) 0.0 x10e3 /uL 0.0-0. 1 Not Available [facility] ([facility]) [address] [facility], [place], [address], 09/05/2024 18:37:39 09/01/19 25 09/01/2024 CBC WITH DIFFE RENTI AL/PL ATELE T NRBC ACID BATH MIXER Not Available [facility] ([facility]) [address] [facility], [place], [address], 09/05/2024 18:37:39 09/01/19 25 09/01/2024 CBC WITH DIFFE RENTI AL/PL ATELE T hematology comments: ACID BATH MIXER Not Available [facility] ([facility]) [address] [facility], [place], [address], 09/05/2024 18:37:39 09/01/19 25 09/01/2024 COMP. METAB OLIC PANEL (14) glucose 122 mg/dL 70-99 above high normal Not Available [facility] ([facility]) [address] [facility], [place], [address], 09/05/2024 18:37:40 09/01/19 25 09/01/2024 COMP. METAB OLIC PANEL (14) BUN 6 mg/dL 6-20 normal Not Available [facility] ([facility]) [address] [place], [address], 09/05/2024 18:37:40 09/01/19 25 09/01/2024 COMP. METAB OLIC PANEL (14) creatinine 0.70 mg/dL 0.57-1 .00 normal Not Available [facility] ([facility]) [address] [place], [address], 09/05/2024 18:37:40 09/01/19 25 09/01/2024 COMP. METAB OLIC PANEL (14) eGFR 119 mL/mi n/1.7 3 >59 normal Not Available [facility] ([facility]) [address], [place], [address], 09/05/2024 18:37:40 09/01/19 25 09/01/2024 COMP. METAB OLIC PANEL (14) BUN/creatini ne ratio 9 9-23 normal Not Available [facility] ([facility]) [address], [place], [address], 09/05/2024 18:37:40 09/01/19 25 09/01/2024 COMP. METAB OLIC PANEL (14) sodium 138 mmol/ L 134-14 4 normal Not Available [facility] ([facility]) [address] [place], [address], 09/05/2024 18:37:40 09/01/19 25 09/01/2024 COMP. METAB OLIC PANEL (14) potassium 4.3 mmol/ L 3.5-5. 2 normal Not Available [facility] ([facility]) [address], [place], [address], 09/05/2024 18:37:40 09/01/19 25 09/01/2024 COMP. METAB OLIC PANEL (14) chloride 103 mmol/ L 96-106 normal Not Available [facility] ([facility]) [address] [facility] [place], [address], 09/05/2024 18:37:40 09/01/19 25 09/01/2024 COMP. METAB OLIC PANEL (14) carbon dioxide, total 20 mmol/ L 20-29 normal Not Available [facility] ([facility]) [address] [facility] [place], [address], 09/05/2024 18:37:40 09/01/19 25 09/01/2024 COMP. METAB OLIC PANEL (14) calcium 9.6 mg/dL 8.7-10 .2 normal Not Available [facility] ([place] [facility]) [address] [facility] [place], [address], 09/05/2024 18:37:40 09/01/19 25 09/01/2024 COMP. METAB OLIC PANEL (14) protein, total 7.0 g/dL 6.0-8. 5 normal Not Available [facility] ([facility]) [address] [place], [address], 09/05/2024 18:37:40 09/01/19 25 09/01/2024 COMP. METAB OLIC PANEL (14) albumin 4.4 g/dL 4.0-5. 0 normal Not Available [facility] ([facility]) [address] [place], [address], 09/05/2024 18:37:40 09/01/19 25 09/01/2024 COMP. METAB OLIC PANEL (14) globulin, total 2.6 g/dL 1.5-4. 5 Not Available [facility] ([facility]) [address] [place], [address], 09/05/2024 18:37:40 09/01/19 25 09/01/2024 COMP. METAB OLIC PANEL (14) bilirubin, total 0.9 mg/dL 0.0-1. 2 normal Not Available [facility] ([facility] [address] [facility] [place], [address], 09/05/2024 18:37:40 09/01/19 25 09/01/2024 COMP. METAB OLIC PANEL (14) alkaline phosphatase 76 IU/L 44-121 normal Not Available [facility] ([facility]) [address] [place], [address], 09/05/2024 18:37:40 09/01/19 25 09/01/2024 COMP. METAB OLIC PANEL (14) AST (SGOT) 19 IU/L 0-40 normal Not Available [facility] ([facility]) [address] [facility] [place], [address], 09/05/2024 18:37:40 09/01/19 25 09/01/2024 COMP. METAB OLIC PANEL (14) ALT (SGPT) 27 IU/L 0-32 normal Not Available [facility] ([facility]) [address] [place], [address], 09/05/2024 18:37:40 09/01/19 25 09/01/2024 LIPID PANEL cholesterol, total 159 mg/dL 100-19 9 normal Not Available [facility] ([facility]) [address] [place], [address], 09/05/2024 18:37:41 09/01/19 25 09/01/2024 LIPID PANEL triglyceride s 125 mg/dL 0-149 normal Not Available [facility] ([facility]) [address] [place], [address], 09/05/2024 18:37:41 09/01/19 25 09/01/2024 LIPID PANEL HDL cholesterol 45 mg/dL >39 normal Not Available [facility] ([facility]) [address] [place], [address], 09/05/2024 18:37:41 09/01/19 25 09/01/2024 LIPID PANEL VLDL cholesterol madison 22 mg/dL 5-40 Not Available [facility] ([facility]) [address] [place], [address], 09/05/2024 18:37:41 09/01/19 25 09/01/2024 LIPID PANEL LDL chol calc ([facility]) 92 mg/dL 0-99 Not Available [facility] ([facility]) [address] [place], [address], 09/05/2024 18:37:41 09/01/19 25 09/01/2024 LIPID PANEL LDL calc comment: ACID BATH MIXER Not Available [facility] ([facility]) [address] [place], [address], 09/05/2024 18:37:41 09/01/19 25 09/05/2024 VITAM IN E vitamin E(alpha tocopherol) 10.0 mg/L 5.9-19 .4 Not Available [facility] ([facility]) [address] [facility], [place], [address], 09/05/2024 18:37:41 09/01/19 25 09/05/2024 VITAM IN E vitamin E(gamma tocopherol) 1.8 mg/L 0.7-4. 9 Refer ence inter vals for alpha and gamma -toco phero l deter mined from [facility] and Nutri tion Exami natio n Surve y, 2004- 2005. Indiv idual s with alpha -toco phero l level s less than 5.0 mg/L are consi dered vitam in E defic ient. Not Available [facility] ([facility]) [address] [facility], [place], [address], 09/05/2024 18:37:41 09/01/1909/01/2024 HEMOG LOBIN A1C hemoglobin A1C 5.9 % 4.8-5. 6 above high normal Predi abete s: 5.7 - 6.4 Diabe jeffrey: >6.4 Glyce [place] contr ol for adult s with diabe jeffrey: <7.0 Not Available [facility] ([facility]) [address] [place], [address], 09/05/2024 18:37:42 09/01/1909/01/2024 FOLAT E (FOLI C ACID) , SERUM folate (folic acid), serum 8.5 NG/mL >3.0 normal A serum folat e sonny ntrat ion of less than 3.1 ng/mL is consi dered to repre sent clini [place]ison defic iency . Not Available [facility] ([facility]) [address] [facility], [place], [address], 09/05/2024 18:37:43 09/01/1909/05/2024 VITAM IN A, SERUM vitamin A 41.5 ug/dL 18.9-5 7.3 Refer ence inter vals for vitam in A deter mined from [facility] inter nal studi es. Indiv idual s with vitam in A less than 20 ug/dL are consi dered vitam in A defic ient and those with serum sonny ntrat ions less than 10 ug/dL are consi dered sever jodie defic ient. This test was devel oped and its perfo rmanc e david cteri stics deter mined by [email or web address]. It has not been clear ed or appro martha by the Food and Drug Admin istra tion. Not Available [facility] ([facility]) [address] [facility], [place], [address], 09/05/2024 18:37:43 09/01/19 25 09/01/2024 VITAM IN D, 25-HY DROXY vitamin D, 25-hydroxy 27.8 NG/mL 30.0-1 00.0 below low normal Vitam in D defic iency has been defin ed by the Insti tute of Medic ine and an Endoc rine Socie ty pract ice guide line as a level of serum 25-OH vitam in D less than 20 ng/mL (1,2) . The Endoc rine Socie ty went on to furth er defin e vitam in D insuf ficie ncy as a level betwe en 21 and 29 ng/mL (2). 1. IOM (Inst itute of Medic ine). 2009. Dieta ry refer ence intak es for calci um and D. Kwesi zaragoza [place]: The [facility] . 2. Fausto lovelace MF, Ofe ey [place], David off-F errar i RUSHING, et al. Evalu ation , treat ment, and preve ntion of vitam in D defic iency : an Endoc rine Socie ty clini [place] pract ice guide line. JCEM. 2010; 96(7) :1911 -30. Not Available [facility] ([facility]) [address] [facility], [place], [address], 09/05/2024 18:37:44 09/01/19 25 09/03/2024 VITAM IN B1 (THIA MINE) , BLOOD vit. B1, whole blood 126.5 nmol/ L 66.5-2 00.0 Not Available [facility] ([facility]) [address] [facility], [place], [address], 09/05/2024 18:37:45 09/01/19 25 09/05/2024 METHY LMALO SREEKANTH ACID, SERUM methylmaloni c acid, serum 101 nmol/ L 0-378 Not Available [facility] ([facility]) [address] [facility], [place], [address], 09/05/2024 18:37:45 09/01/19 25 09/01/2024 PTH, INTAC T PTH, intact 20 pg/mL 15-65 normal Not Available [facility] ([facility]) [address] [facility], [place], [address], 09/05/2024 18:37:46 09/22/19 25 09/22/[address] (H PYLOR I AB QUAL) kristin test 20 min NEGATI VE negati ve Not Available [facility] ([facility]) [address], [place], [address], 09/22/2024 09:24:17 09/22/19 25 09/22/[address] (H PYLOR I AB QUAL) kristin test 1HR NEGATI VE negati ve Not Available [facility] ([facility]) [address], [place], [address], 09/22/2024 09:24:17 09/22/19 25 09/22/[address] (H PYLOR I AB QUAL) kristin test 3 HR NEGATI VE negati ve Not Available [facility] ([facility]) [address], [place], [address], 09/22/2024 09:24:17 09/22/1909/22/[address] (H PYLOR I AB QUAL) kristin test 24 HR NEGATI VE negati ve Not Available [facility] ([facility]) [address], [place], [address], 09/22/2024 09:24:17 09/22/1909/22/[address] (H PYLOR I AB QUAL) kristin test kit lot# [id number] Not Available [facility] ([facility]) [address], [place], [address], 09/22/2024 09:24:17 09/22/1909/22/[address] (H PYLOR I AB QUAL) kristin test kit exp date Not Available [facility] ([facility]) [address], [place], [address], 09/22/2024 09:24:17 11/09/1911/09/2024 CBC WITH DIFFE RENTI AL/PL ATELE T WBC 9.3 x10e3 /uL 3.4-10 .8 normal Not Available [facility] ([facility]) [address] [place], [address], 11/09/2024 08:38:18 11/09/1911/09/2024 CBC WITH DIFFE RENTI AL/PL ATELE T RBC 5.16 x10e6 /uL 3.77-5 .28 normal Not Available [facility] ([facility]) [address] [place], [address], 11/09/2024 08:38:18 11/09/1911/09/2024 CBC WITH DIFFE RENTI AL/PL ATELE T hemoglobin 14.1 g/dL 11.1-1 5.9 normal Not Available [facility] ([facility]) [address] [place], [address], 11/09/2024 08:38:18 11/09/1911/09/2024 CBC WITH DIFFE RENTI AL/PL ATELE T hematocrit 45.4 % 34.0-4 6.6 normal Not Available [facility] ([facility]) [address] [facility], [place], [address], 11/09/2024 08:38:18 11/09/1911/09/2024 CBC WITH DIFFE RENTI AL/PL ATELE T MCV 88 fL 79-97 normal Not Available [facility] ([facility]) [address] [facility], [place], [address], 11/09/2024 08:38:18 11/09/1911/09/2024 CBC WITH DIFFE RENTI AL/PL ATELE T MCH 27.3 pg 26.6-3 3.0 normal Not Available [facility] ([facility]) [address] [facility], [place], [address], 11/09/2024 08:38:18 11/09/1911/09/2024 CBC WITH DIFFE RENTI AL/PL ATELE T MCHC 31.1 g/dL 31.5-3 5.7 below low normal Not Available [facility] ([facility]) [address] [facility], [place], [address], 11/09/2024 08:38:18 11/09/1911/09/2024 CBC WITH DIFFE RENTI AL/PL ATELE T RDW 13.2 % 11.7-1 5.4 Not Available [facility] ([facility]) [address] [place], [address], 11/09/2024 08:38:18 11/09/1911/09/2024 CBC WITH DIFFE RENTI AL/PL ATELE T platelets 384 x10e3 /uL 150-45 0 normal Not Available [facility] ([facility]) [address] [place], [address], 11/09/2024 08:38:18 11/09/1911/09/2024 CBC WITH DIFFE RENTI AL/PL ATELE T neutrophils 58 % not estab. normal Not Available [facility] ([facility]) [address] [facility], [place], [address], 11/09/2024 08:38:18 11/09/19 25 11/09/2024 CBC WITH DIFFE RENTI AL/PL ATELE T lymphs 35 % not estab. normal Not Available [facility] ([facility]) [address] [facility], [place], [address], 11/09/2024 08:38:18 11/09/1911/09/2024 CBC WITH DIFFE RENTI AL/PL ATELE T monocytes 5 % not estab. normal Not Available [facility] ([facility]) [address] [facility], [place], [address], 11/09/2024 08:38:18 11/09/1911/09/2024 CBC WITH DIFFE RENTI AL/PL ATELE T eos 2 % not estab. normal Not Available [facility] ([facility]) [address] [facility], [place], [address], 11/09/2024 08:38:18 11/09/1911/09/2024 CBC WITH DIFFE RENTI AL/PL ATELE T basos 0 % not estab. normal Not Available [facility] ([facility]) [address] [facility], [place], [address], 11/09/2024 08:38:18 11/09/1911/09/2024 CBC WITH DIFFE RENTI AL/PL ATELE T immature cells ACID BATH MIXER Not Available [facility] ([facility]) [address] [place], [address], 11/09/2024 08:38:18 11/09/19 25 11/09/2024 CBC WITH DIFFE RENTI AL/PL ATELE T neutrophils (absolute) 5.3 x10e3 /uL 1.4-7. 0 normal Not Available [facility] ([facility]) [address] [facility], [place], [address], 11/09/2024 08:38:18 11/09/19 25 11/09/2024 CBC WITH DIFFE RENTI AL/PL ATELE T lymphs (absolute) 3.2 x10e3 /uL 0.7-3. 1 above high normal Not Available [facility] ([facility]) [address] [facility], [place], [address], 11/09/2024 08:38:18 11/09/19 25 11/09/2024 CBC WITH DIFFE RENTI AL/PL ATELE T monocytes(ab solute) 0.5 x10e3 /uL 0.1-0. 9 normal Not Available [facility] ([facility]) [address], [place], [id number], 11/09/2024 08:38:18 11/09/19 25 11/09/2024 CBC WITH DIFFE RENTI AL/PL ATELE T eos (absolute) 0.2 x10e3 /uL 0.0-0. 4 normal Not Available [facility] ([facility]) [address] [facility] [address], [place], [id number], 11/09/2024 08:38:18 11/09/19 25 11/09/2024 CBC WITH DIFFE RENTI AL/PL ATELE T baso (absolute) 0.0 x10e3 /uL 0.0-0. 2 normal Not Available [facility] ([facility]) [address] [facility] [address], [place], [address], 11/09/2024 08:38:18 11/09/19 25 11/09/2024 CBC WITH DIFFE RENTI AL/PL ATELE T immature granulocytes 0 % not estab. Not Available [facility] ([facility]) [address], [place], [address], 11/09/2024 08:38:18 11/09/19 11/09/2024 CBC WITH DIFFE RENTI AL/PL ATELE T immature grans (abs) 0.0 x10e3 /uL 0.0-0. 1 Not Available [facility] ([facility]) [address], [place], [address], 11/09/2024 08:38:18 11/09/1911/09/2024 CBC WITH DIFFE RENTI AL/PL ATELE T NRBC ACID BATH MIXER Not Available [facility] (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) [address] [facility] [address], [place], [address], 11/09/2024 08:38:18 11/09/1911/08/2024 COMP. METAB OLIC PANEL (14) interpretati on: [...] acute renal failu re. Addit ional infor josé luis jeffries may be found at [email or web address] org. Not Available [facility] ([facility]) [address] [facility], [place], [address], 11/09/2024 08:38:19 11/09/1911/09/2024 COMP. METAB OLIC PANEL (14) glucose 102 mg/dL 70-99 above high normal Not Available [facility] ([facility]) [address] [facility] [address], [place], [address], 11/09/2024 08:38:19 11/09/19 25 11/09/2024 COMP. METAB OLIC PANEL (14) BUN 9 mg/dL 6-20 normal Not Available [facility] ([facility]) [address] [facility] [place], [address], 11/09/2024 08:38:19 11/09/1911/09/2024 COMP. METAB OLIC PANEL (14) creatinine 0.59 mg/dL 0.57-1 .00 normal Not Available [facility] ([facility]) [address] [facility] [place], [address], 11/09/2024 08:38:19 11/09/19 25 11/09/2024 COMP. METAB OLIC PANEL (14) eGFR 123 mL/mi n/1.7 3 >59 normal Not Available [facility] ([facility]) [address] [facility] [address], [place], [address], 11/09/2024 08:38:19 11/09/1911/09/2024 COMP. METAB OLIC PANEL (14) BUN/creatini ne ratio 15 9-23 normal Not Available [facility] ([facility]) [address] [facility] [place], [address], 11/09/2024 08:38:19 11/09/1911/09/2024 COMP. METAB OLIC PANEL (14) sodium 140 mmol/ L 134-14 4 normal Not Available [facility] ([facility]) [address] [facility] [place], [address], 11/09/2024 08:38:19 11/09/19 25 11/09/2024 COMP. METAB OLIC PANEL (14) potassium 4.3 mmol/ L 3.5-5. 2 normal Not Available [facility] ([facility]) [address] [facility] [place], [address], 11/09/2024 08:38:19 11/09/1911/09/2024 COMP. METAB OLIC PANEL (14) chloride 101 mmol/ L 96-106 normal Not Available [facility] ([facility]) [address] [facility] [place], [address], 11/09/2024 08:38:19 11/09/1911/09/2024 COMP. METAB OLIC PANEL (14) carbon dioxide, total 22 mmol/ L 20-29 normal Not Available [facility] ([facility]) [address] [facility] [place], [address], 11/09/2024 08:38:19 11/09/1911/09/2024 COMP. METAB OLIC PANEL (14) calcium 9.9 mg/dL 8.7-10 .2 normal Not Available [facility] ([facility]) [address] [facility] [place], [address], 11/09/2024 08:38:19 11/09/1911/09/2024 COMP. METAB OLIC PANEL (14) protein, total 7.3 g/dL 6.0-8. 5 normal Not Available [facility] ([facility]) [address] [facility] [place], [address], 11/09/2024 08:38:19 11/09/1911/09/2024 COMP. METAB OLIC PANEL (14) albumin 4.5 g/dL 3.9-4. 9 normal Not Available [facility] ([facility]) [address] [facility] [place], [address], 11/09/2024 08:38:19 11/09/1911/09/2024 COMP. METAB OLIC PANEL (14) globulin, total 2.8 g/dL 1.5-4. 5 Not Available [facility] ([facility]) [address] [facility] [place], [address], 11/09/2024 08:38:19 11/09/19 25 11/09/2024 COMP. METAB OLIC PANEL (14) bilirubin, total 1.1 mg/dL 0.0-1. 2 normal Not Available [facility] ([facility]) [address] [place], [address], 11/09/2024 08:38:19 11/09/1911/09/2024 COMP. METAB OLIC PANEL (14) alkaline phosphatase 87 IU/L 41-116 normal Not Available [facility] ([facility]) [address] [place], [address], 11/09/2024 08:38:19 11/09/1911/09/2024 COMP. METAB OLIC PANEL (14) AST (SGOT) 20 IU/L 0-40 normal Not Available [facility] ([facility]) [address] [place], [address], 11/09/2024 08:38:19 11/09/1911/09/2024 COMP. METAB OLIC PANEL (14) ALT (SGPT) 25 IU/L 0-32 normal Not Available [facility] ([facility]) [address] [place], [address], 11/09/2024 08:38:19 11/09/1911/09/2024 HEMOG LOBIN A1C hemoglobin A1C 5.9 % 4.8-5. 6 above high normal Predi abete s: 5.7 - 6.4 Diabe jeffrey: >6.4 Glyce [place] contr ol for adult s with diabe jeffrey: <7.0 Not Available [facility] ([facility]) [address] [place], [address], 11/09/2024 08:38:19 09/26/19 25 09/25/2024 XR, chest , 2 view [facility] [address] [id number] Phone: Fax: Name: JONNY GUERRERO RD Exam Date: 025 : [birth year] Age 29 years Gender : F Access ion: [id number] Physic lola: JESSI QUEVEDO Facili ty: [place] Facili ty HSV: Outpat ient Exam: CHEST [...] Electr onical ly signed by: SHAWN DANIELSON 025 Thank you for referr pepper JONNY GUERRERO RD to [facility]. Legall y authen ticate d by ALEXIA Castañeda 09-25 10:18: 22 CC'ed Logic: Orderi ng Provid er: EMY Buckley Attend ing Provid er: EMY Buckley Admitt ing Provid er: EMY Buckley [id number] [facility] [address] [place] [address], [place], [address], 09/25/2024 10:31:48 Result Notes Documentation Provider Name and Address Organization Details Recorded Time Xr, Chest, 2 View : [address] [place] [address] Name: JONNY DAWSON Exam Date: 09/25/2024 : 1995 Age 29 years Gender: F Physician: SPENCER QUEVEDO Facility: [facility] Facility HSV: Outpatient Exam: CHEST 2 VIEWS EXAM: XR CHEST 2 VIEWS INDICATION: preop. . TECHNIQUE: 2 views of the chest were submitted. COMPARISON:No prior study was submitted for comparison FINDINGS: The mediastinum and cardiac silhouette are not enlarged. There is no pneumothorax. There is no pulmonary infiltrate or atelectasis. IMPRESSION: No infiltrate. Electronically signed by: Shawn Reynolds MD 09/25/2024 10:18 AM EDT RP Dictated By: SHAWN REYNOLDS Transcribed By: Transcribed On: 09/25/2024 10:18 AM Electronically signed by: SHAWN REYNOLDS 09/25/2024 Thank you for referring JONNY DAWSON to [facility]. Legally authenticated by STACY Castañeda 2024-09-25 10:18:22 CC'ed Logic: Ordering Provider: EMY PALMER Attending Provider: EMY PALMER Admitting Provider: EMY QUEVEDO NP [address], [place], [address], [place] [facility] [place] & [place] 09/25/2024 10:31:49 Problems Name Problem SNOMED Code Status Onset Date Resolution Date Notes Provider Name and Address Organization Details Recorded Time Prediabete s 195653079 Active 2024 WHIT QUEVEDO NP [address], [place], [address] , [place] [facility] [place] & [place] 5 08:52:53 Polycystic ovary syndrome 937364980 Active 2024 WHIT QUEVEDO NP [address], [facility] [address] , [place] [facility] [place] & [place] 5 08:52:58 Severe obesity 6979143222120 4 Active 2024 WHIT QUEVEDO NP [address], [place], [address] , [facility] & [place] 5 08:53:45 Problem Notes Documentation Provider Name and Address Organization Details Recorded Time Nutrition Consult/Follow-up Progress Note [facility] Name Jonny Dawson Date of Service 0953 [id number] (F) Attending DEYSI Tobias PHY Admitted [id number] Discharged Primary LORENZO Tabor - Nutritional Comments: RDN rounded on pt this AM s/p MATT-S. Pt reports doing well. Tolerating PO liquids. Ambulating often. Provided patient with stage 1 clear liquid diet and vitamins to start taking or purchase including: MVI, Fe, Ca, vitB complex, and dry Alexi and D. Provided handout reminder about post-op class and f/u on Wednesday11/21/2024; was informed that class is 1 hour followed by visit with provider. Advised pt to continue clear liquids through POD#7 then begin full liquids on POD#8 continuing through POD#14. Encouraged to start tracking calories and protein with an isidoro or pen/paper. Advised to get 90 g protein/day and 64 oz. caffeine-free, un-carbonated beverages. RDN addressed pt questions. Verbally agreeable to recommendations. RDN available PRN for assistance. Electronically signed by ULISSES Mejias RD on 0953 1 of 1 CC'ed Logic: Ordering Provider: ULISSES VERDE Attending Provider: DEYSI JORDAN Admitting Provider: DEYSI JORDAN Not Available [facility] 11/14/2024 09:55:05 Procedures Surgical History Date Name Laterality Status Provider Name and Address Organization Details Recorded Time 11/13 bypass of duodenum completed Maine Mccoy [place] - [facility] & [place] 5 08:17:26 09/21 ESOPHAGOGASTRODUODENOSCOPY (SURG) completed Ian keith [place] - [facility] & [place] 5 13:07:00 02/08 extraction of wisdom tooth completed CHRISTINA QUEVEDO, ACID BATH MIXER [address], [place], [address] , [facility] & [place] 10:38:14 Imaging Results None recorded. Procedure Notes None recorded. Medical Equipment None Reported. Allergies Allergen ID Allergen Name Allergen Category Reaction Reaction Severity Criticality Documentation Date Start Date Code Code System Note Provider Name and Address Organization Details Recorded Time 374657 amoxicill in medicatio n hives Not available Not available 08/31/2024 723 RxNorm Lillyerin Velazquez willie, [facility] & [place] 08:14:49 Medications Name Sig Start Date Stop [...] lable Vitals Date Recorded Body height Body mass index (BMI) Body weight Body temperature Heart rate Systolic And Diastolic Provider Name and Address Organization Details Last Updated DateTime 154.94 cm 50.4 kg/m2 140065. 16 g 99.6 [degF] 93 /min 124/82 mm[Hg] Lilly Velazquez [facility] & [place] 08:16:55 Date Recorded Body height Body mass index (BMI) Body weight Provider Name and Address Organization Details Last Updated DateTime 09/25/2024 154.94 cm 49 kg/m2 569942.[address], LD [address], [place], [address], [facility] & [place] 09/25/2024 11:15:45 Date Recorded Body weight Provider Name an d Address Organization Details Last Updated DateTime 10/23/2024 024461.49 g Chelsi BUTLER [address], [place], [address], [facility] & [place] 10/23/2024 09:17:51 Date Recorded Body height Body temperature Body mass index (BMI) Body weight Heart rate Systolic And Diastolic Provider Name and Address Organization Details Last Updated DateTime 154.94 cm 97 [degF] 49.7 kg/m2 118168. 07 g 95 /min 123/79 mm[Hg] Ian cadet [facility] & [place] 08:27:35 Date Recorded Body height Body temperature Body mass index (BMI) Body weight Heart rate Oxygen saturation Oxygen saturation in Arterial blood by Pulse oximetry Systolic And Diastolic Provider Name and Address Organization Details Last Updated DateTime 154.94 cm 97.8 [degF] 45.5 kg/m2 185852. 76 g 89 /min 100 % 100 % 111/76 mm[Hg] Maine Mccoy [facility] & [place] 08:16:17 Social History None recorded. Functional Status Question Answer Note LastModified by Whisper ion Details LastModified Time Do you use any illicit or recreational drugs? No [email or web address] Information not available 08/31/2024 What is your level of alcohol consumption? None [email or web address] Information not available 08/31/2024 Mental Status None [...] ICD10 Code Diagnosis IMO Codes Diagnosis Note [id number] WHTI QUEVEDO NP [facility] [address] [place] [address] 08/31/2024 08:13:03 08/31/2024 11:09:33 Disorder of function of stomach 572446449 K31.89 Pre-surger y evaluation 650680455 Z01.818 Obesity screening 558737 005 Z13.89 Prediabetes 699613317 R7 3.03 292544 Polycystic ovary syndrome 792424039 E28.2 113338 Severe obesity 063103254 1 9104 E66.813 Z68.43 [id number] The patient will be scheduled for the following. Initial intake lab work, ECG, and EGD. All risks complicati ons and alternativ es of the upper endoscopy were discussed with the patient and agreed upon. These include but are not limited to, over sedation, bleeding, perforatio n.Patient will be educated by the surgical weight loss team regarding if any medical managed weight loss will be required and they will follow this according to their recommenda tions.tameka ent will follow-up in office after all testing has been completed [id number] SHIVANI FIGUEROA RD, MELISA [facility] [address] [place] [address] 08/31/2024 08:01:11 08/31/2024 12:53:23 Morbid obesity 873566380 E66.01 75529 BMI 50.[id number], MELISA [facility] [address] [place] [address] 09/25/2024 08:55:39 09/25/2024 10:04:47 Morbid obesity 609570344 E66.01 26254 BMI 49 wt loss 7.5# [id number] MEHREEN GTZ RD [facility] [address] [place] [address] 10/23/2024 08:56:55 10/23/2024 09:43:22 Diet education 50984538 Z71.3 257813 [id number] Asif Sharp DO [facility] [address] [facility] [address] [facility] [place] [address] 11/08/2024 07:58:54 11/08/2024 19:09:07 Morbid obesity 905626095 E66.01 Pre-surger y evaluation 936058766 Z01.818 Postoperative pain 90093 9007 G89.18 Polycystic ovary syndrome 794728520 E28.2 211920 Prediabetes 272782813 R7 3.03 634014 [id number] ARTUR Caballero [facility] [address] [facility] [address] [facility] [place] [address] 11/21/2024 08:05:05 11/21/2024 10:13:15 History of gastrectomy 398426242 Z90.3 Encouraged patient to continue focus on intake of adequate protein and hydration. Pt is advised to get a minimum 70 g of protein and 800 calories.P atient is to continue incentive spirometer for another 5-7 days dailyPatie nt is encouraged to ambulate oftenPatie nt is to start bariatric approved vitamin. Pt will have first post op vitamin panel at next office visit (1mth post op)Follow up 3 weeks Health Concerns Section Related Observation LastModified by Organization Detai ls LastModified Time None Recorded Concern Status LastModified by Organization Details LastModified Time None Recorded Advance Directives Directive None Recorded Payers Insurance Date Sequence Insurance Name Policy Number Policy Parker Covered Member ID Parker Member ID Guarantor Name 11/20/2024 1 HEENA Dawson [id number] Jonny Dawson Notes Date Note Type Note Provider Name and Address Organization Details Recorded Time 08/31/2024 text/html ROS as noted in the HPI Patient presents today for the initial evaluation with an interest in bariatric surgery. Patients first choice for bariatric surgery is duodenal switchPt has been overweight most of their life. Has been 100lbs or more over weight for 13+ years. Pt reports dyspnea joint pain and mobility issues related to excess weight.The pt is pursuing weight loss surgery because excess weight directly contributes to comorbidities including prediabetes and PCOS.Patient has been on GLP-1 in the past for weight loss.Patient denies any history of blood clotting concerns or difficulty with anesthesia.Diets include calorie counting high protein/low carb diet. Pt site physical hunger and boredom as prompts to eat. Struggles with portion size. DIET HX:The patient states that they have been overweight since adolescenceThe patient states that they have been 100 lbs or more overweight 13 years.The patient started dieting at the age of 16Dieting methods that have been most successful in losing weight are low carb, low sugarThe most weight ever lost on a single dieting attempt was ? and this was maintained until 3 monthsThe patient has attempted the following unsupervised diet attempts calorie counting, high protein, diabetic diet, meal replacementsThe Patient has followed the following supervised diet attempts WWThe following OTC or prescribed medications have been utilized for weight loss zepbound, ozempicBehavior treatments for weight loss that have been attempted in the past were noneThe patient has utilized the following modes of exercise to help with weight loss walking, weight trainingThe patient has not use self induced behaviors to help them lose weight in the past.Currently the patient admits to an eating history of skipping meals, eating or snacking in the evening or night.The patient feels that the majority of their meals are prepared from restaurants.Common triggers for causing the patient to overeat are physical hunger, boredom. SPENCER QUEVEDO, STEPHEN [address], [place], [address], [facility] & [place] 08/31/2024 13:08:45 08/31/2024 text/html Intake Template RDN met w/ DORYS [place] , who is a 28 YO to complete initial nutritional assessment for intake of bariatric surgery. Pt is interested in DS. Height = 61 in. Weight = 267# (BMI =50.4 ). PMH significant for PCOS, pdm Past weight loss attempts: keto, low carb, WW, Metformin, Zepbound, Ozempic Hx of eating disorder: No Prescription diet pills: No Herbal supplements: No Vitamins: No Meal Pattern: B: eggs, gonzalez or sausage, sometimes skipsL: late breakfast or skipsD: sandwhich, hot dog, or meat, starch, vegetableSnacks: sweets, pickles, granola bars, fruit Eating out: 1-2 times a week Beverages: Water -80 oz/day, Coke zero - 1-2/day Alcoholic consumption: No Smoking/Tobacco: No Exercise: walks, you tube videos Recent changes: weaning off soft drinks Motivation for surgery: Health, increase activity Support after surgery: , mom, aunt Goals for surgery: would like to be a healthy weight Additional Notes:Weigh-Ins Needed: 3, 1 month until surgeryWeigh-Ins Scheduled: ERIKA recommendations:1. Download Barit[employer] and start keeping food records2. Look for food triggers and replace with healthy snacks3. Wean of diet soft drinks4. Eat 3-6 times a day5. Review manual for meal and snack ideas6. Physical activity 3 times a week for 20 min Pt verbally agreeable to recommendations. Denied having further questions/concerns. RDN concludes that pt is a candidate for sx at this time. RDN will f/up and monitor PRN. SHIVANI FIGUEROA RD, MELISA [address] , [place], [address], [facility] 08/31/2024 12:52:05 09/25/2024 text/html RDN met w/ pt today for weight-check in pursuit of WLS. Height: 61Weight Today: 259.5BMI: 49 Weight change since last visit: -7.5Weight Hx:267# on 08/31/24 Current Diet: High Protein, moderate carbCurrent Exercise: walking RD Recommendations:1. Download Barit[employer] and start keeping food records2. Look for food triggers and replace with healthy snacks3. Wean of diet soft drinks4. Eat 3-6 times a day5. Review manual for meal and snack ideas6. Physical activity 3 times a week for [address], LD [address] [facility], [place], [address], [facility] 09/25/2024 11:18:13 10/23/2024 text/html ERIKA met w/ pt today for weight-check in pursuit of WLS. Height: 61 Weight Today: 255.4BMI: 48.2 Weight change since last visit: -4.1#Weight Hx:267# on 08/31/66252.5# on 09/25/24 Current Diet: High Protein, moderate carb, cut down on diet coke and has increase water and powerade zero, drinking protein shakesCurrent Exercise: walking dogs MEHREEN GTZ, RD [address] [facility], [place], [address] 10/23/2024 09:17:13 11/08/2024 text/html ROS as noted in the [...] have also undergone a class with the outer diameter grinder and have received clear instructions on what is required regarding fluid intake, protein intake and vitamin consumption postoperatively. The patient is being managed by their PCP for their PCOS and prediabetes and is currently stable. Asif Sharp DO [address], [place], [address] 11/08/2024 10:24:33 11/21/2024 text/html ROS as noted in the HPI Patient presents for 1wk Post-Op Check s/p 11/13/2024 sleeve gastrectomy SmithPatient is doing well. Tolerating PO intake w/out issue. Getting 80-90g/dy protein. Pt reports good hydration. Taking recommended vitamins and PPI. Pt Denies : abdominal pain, prandial issues Nausea, Vomiting, bowel or bladder issues Path benign Pt is happy with their quality of life after Weight loss Surgery. ARTUR Caballero [address], [place], [address], [facility] 11/21/2024 10:45:50 OBGyn Episode No OBEpisode recorded.
--- OUTSIDE RECORDS SUMMARY | 2024-12-08 11:58 | XMS_ITS | Continuity of Care Document ---
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 [...] understand this plan and agree to comply. [email or web address] Not available 11/21/2024 08:14:46 Plan of Treatment [...] ed. Medication Orders None record ed. Patient TargetsNo targets recorded. Patient InstructionsNo instructions recorded. Reason for Referral None Reported. Results Created Date Observation Date Name Description Value Unit Range Abnormal Flag Note LastModifiedBy Organization Detail LastModifiedTime 11/09/1911/09/2024 CBC WITH DIFFE RENTI AL/PL ATELE T WBC 9.3 x10e3 /uL 3.4-10 .8 normal Not Available [facility] ([facility]) [address] [place], [address], 11/09/2024 08:38:18 11/09/1911/09/2024 CBC WITH DIFFE RENTI AL/PL ATELE T RBC 5.16 x10e6 /uL 3.77-5 .28 normal Not Available [facility] ([facility]) [address] [facility], [place], [address], 11/09/2024 08:38:18 11/09/1911/09/2024 CBC WITH DIFFE RENTI AL/PL ATELE T hemoglobin 14.1 g/dL 11.1-1 5.9 normal Not Available [facility] ([facility]) [address] [facility], [place], [address], 11/09/2024 08:38:18 11/09/1911/09/2024 CBC WITH DIFFE RENTI AL/PL ATELE T hematocrit 45.4 % 34.0-4 6.6 normal Not Available [facility] ([facility]) [address] [place], [address], 11/09/2024 08:38:18 11/09/19 25 11/09/2024 CBC WITH DIFFE RENTI AL/PL ATELE T MCV 88 fL 79-97 normal Not Available [facility] ([facility]) [address] [facility], [place], [address], 11/09/2024 08:38:18 11/09/19 25 11/09/2024 CBC WITH DIFFE RENTI AL/PL ATELE T MCH 27.3 pg 26.6-3 3.0 normal Not Available [facility] ([facility]) [address] [facility], [place], [address], 11/09/2024 08:38:18 11/09/1911/09/2024 CBC WITH DIFFE RENTI AL/PL ATELE T MCHC 31.1 g/dL 31.5-3 5.7 below low normal Not Available [facility] ([facility]) [address] [place], [address], 11/09/2024 08:38:18 11/09/1911/09/2024 CBC WITH DIFFE RENTI AL/PL ATELE T RDW 13.2 % 11.7-1 5.4 Not Available [facility] ([facility]) [address] [facility], [place], [address], 11/09/2024 08:38:18 11/09/19 25 11/09/2024 CBC WITH DIFFE RENTI AL/PL ATELE T platelets 384 x10e3 /uL 150-45 0 normal Not Available [facility] ([facility]) [address] [place], [address], 11/09/2024 08:38:18 11/09/1911/09/2024 CBC WITH DIFFE RENTI AL/PL ATELE T neutrophils 58 % not estab. normal Not Available [facility] ([facility]) [address] [place], [address], 11/09/2024 08:38:18 1011/09/2024 CBC WITH DIFFE RENTI AL/PL ATELE T lymphs 35 % not estab. normal Not Available [facility] ([facility]) [address] [facility], [place], [address], 11/09/2024 08:38:18 11/09/19 25 11/09/2024 CBC WITH DIFFE RENTI AL/PL ATELE T monocytes 5 % not estab. normal Not Available [facility] ([facility]) [address] [facility], [place], [address], 11/09/2024 08:38:18 11/09/1911/09/2024 CBC WITH DIFFE RENTI AL/PL ATELE T eos 2 % not estab. normal Not Available [facility] ([facility]) [address] [facility], [place], [address], 11/09/2024 08:38:18 11/09/1911/09/2024 CBC WITH DIFFE RENTI AL/PL ATELE T basos 0 % not estab. normal Not Available [facility] (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) [address] [place], [address], 11/09/2024 08:38:18 11/09/19 25 11/09/2024 CBC WITH DIFFE RENTI AL/PL ATELE T neutrophils (absolute) 5.3 x10e3 /uL 1.4-7. 0 normal Not Available [facility] ([facility]) [address] [place], [address], 11/09/2024 08:38:18 11/09/19 25 11/09/2024 CBC WITH DIFFE RENTI AL/PL ATELE T lymphs (absolute) 3.2 x10e3 /uL 0.7-3. 1 above high normal Not Available [facility] ([facility]) [address] [facility], [place], [address], 11/09/2024 08:38:18 11/09/19 25 11/09/2024 CBC WITH DIFFE RENTI AL/PL ATELE T monocytes(ab solute) 0.5 x10e3 /uL 0.1-0. 9 normal Not Available [facility] ([facility]) [address] [facility], [place], [address], 11/09/2024 08:38:18 11/09/1911/09/2024 CBC WITH DIFFE RENTI AL/PL ATELE T eos (absolute) 0.2 x10e3 /uL 0.0-0. 4 normal Not Available [facility] ([facility]) [address] [facility], [place], [address], 11/09/2024 08:38:18 11/09/1911/09/2024 CBC WITH DIFFE RENTI AL/PL ATELE T baso (absolute) 0.0 x10e3 /uL 0.0-0. 2 normal Not Available [facility] ([facility]) [address] [facility], [place], [address], 11/09/2024 08:38:18 11/09/19 25 11/09/2024 CBC WITH DIFFE RENTI AL/PL ATELE T immature granulocytes 0 % not estab. Not Available [facility] ([facility]) [address] [facility], [place], [address], 11/09/2024 08:38:18 11/09/19 25 11/09/2024 CBC WITH DIFFE RENTI AL/PL ATELE T immature grans (abs) 0.0 x10e3 /uL 0.0-0. 1 Not Available [facility] (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) [address] [facility], [place], [address], 11/09/2024 08:38:18 11/09/1911/08/2024 COMP. METAB OLIC PANEL [...] failu re. Addit ional infor josé luis n may be found at www.k doqi. org. Not Available [facility] ([facility]) [address] [facility], [place], [address], 11/09/2024 08:38:19 11/09/1911/09/2024 COMP. METAB OLIC PANEL (14) glucose 102 mg/dL 70-99 above high normal Not Available [facility] ([facility]) [address] [facility], [place], [address], 11/09/2024 08:38:19 11/09/19 25 11/09/2024 COMP. METAB OLIC PANEL (14) BUN 9 mg/dL 6-20 normal Not Available [facility] ([facility]) [address] [place], [address], 11/09/2024 08:38:19 11/09/1911/09/2024 COMP. METAB OLIC PANEL (14) creatinine 0.59 mg/dL 0.57-1 .00 normal Not Available [facility] ([facility]) [address] [place], [address], 11/09/2024 08:38:19 11/09/19 25 11/09/2024 COMP. METAB OLIC PANEL (14) eGFR 123 mL/mi n/1.7 3 >59 normal Not Available [facility] ([facility]) [address] [facility] [place], [address], 11/09/2024 08:38:19 11/09/19 25 11/09/2024 COMP. METAB OLIC PANEL (14) BUN/creatini ne ratio 15 9-23 normal Not Available [facility] ([facility]) [address] [facility] [place], [address], 11/09/2024 08:38:19 11/09/1911/09/2024 COMP. METAB OLIC PANEL (14) sodium 140 mmol/ L 134-14 4 normal Not Available [facility] ([facility]) [address] [facility] [place], [address], 11/09/2024 08:38:19 11/09/19 25 11/09/2024 COMP. METAB OLIC PANEL (14) potassium 4.3 mmol/ L 3.5-5. 2 normal Not Available [facility] ([facility]) [address] [facility] [place], [address], 11/09/2024 08:38:19 11/09/19 25 11/09/2024 COMP. METAB OLIC PANEL (14) chloride 101 mmol/ L 96-106 normal Not Available [facility] ([facility]) [address] [facility] [place], [address], 11/09/2024 08:38:19 11/09/19 25 11/09/2024 COMP. METAB OLIC PANEL (14) carbon dioxide, total 22 mmol/ L 20-29 normal Not Available [facility] ([facility]) [address] [facility] [place], [address], 11/09/2024 08:38:19 11/09/1911/09/2024 COMP. METAB OLIC PANEL (14) calcium 9.9 mg/dL 8.7-10 .2 normal Not Available [facility] ([facility]) [address] [facility] [place], [address], 11/09/2024 08:38:19 11/09/1911/09/2024 COMP. METAB OLIC PANEL (14) protein, total 7.3 g/dL 6.0-8. 5 normal Not Available [facility] ([facility]) [address] [facility] [place], [address], 11/09/2024 08:38:19 11/09/1911/09/2024 COMP. METAB OLIC PANEL (14) albumin 4.5 g/dL 3.9-4. 9 normal Not Available [facility] ([facility]) [address] [facility] [place], [address], 11/09/2024 08:38:19 11/09/1911/09/2024 COMP. METAB OLIC PANEL (14) globulin, total 2.8 g/dL 1.5-4. 5 Not Available [facility] ([facility]) [address] [facility] [place], [address], 11/09/2024 08:38:19 11/09/1911/09/2024 COMP. METAB OLIC PANEL (14) bilirubin, total 1.1 mg/dL 0.0-1. 2 normal Not Available [facility] ([facility]) [address] [facility] [place], [address], 11/09/2024 08:38:19 11/09/1911/09/2024 COMP. METAB OLIC PANEL (14) alkaline phosphatase 87 IU/L 41-116 normal Not Available [facility] ([facility]) [address] [facility], [place], [address], 11/09/2024 08:38:19 11/09/1911/09/2024 COMP. METAB OLIC PANEL (14) AST (SGOT) 20 IU/L 0-40 normal Not Available [facility] ([facility]) [address] [facility], [place], [address], 11/09/2024 08:38:19 11/09/1911/09/2024 COMP. METAB OLIC PANEL (14) ALT (SGPT) 25 IU/L 0-32 normal Not Available [facility] ([facility]) [address] [facility], [place], [address], 11/09/2024 08:38:19 11/09/1911/09/2024 HEMOG LOBIN A1C hemoglobin A1C 5.9 % 4.8-5. 6 above high normal Predi abete s: 5.7 - 6.4 Diabe jeffrey: >6.4 Glyce [place] contr ol for adult s with diabe jeffrey: <7.0 Not Available [facility] ([facility]) [address] [place], [address], 11/09/2024 08:38:19 Result Notes None recorded. Problems Name Problem SNOMED Code Status Onset Date Resolution Date Notes Provider Name and Address Organization Details Recorded Time Prediabete s 827061132 Active 2024 WHIT QUEVEDO NP [address] , [place], [address] , [facility] - [place] - [facility] 08:52:53 Polycystic ovary syndrome 715256311 Active 2024 WHIT QUEVEDO NP [address] [place], [address] , [facility] & [place] 5 08:52:58 Severe obesity 0864488573766 4 Active 2024 WHIT QUEVEDO NP [address], [place], [address] , [facility] & [place] 5 08:53:45 Problem Notes None recorded. Procedures Surgical History Date Name Laterality Status Provider Name and Address Organization Details Recorded Time 11/13 bypass of duodenum completed Maine Mccoy [facility] & [place] 5 08:17:26 09/21 ESOPHAGOGASTRODUODENOSCOPY (SURG) completed Ian keith [facility] & [place] 5 13:07:00 02/08 extraction of wisdom tooth completed CHRISTINA QUEVEDO NP [address], [place], [address] [facility] & [place] 5 10:38:14 Imaging Results None recorded. Procedure Notes None recorded. Medical Equipment None Reported. Allergies Allergen ID Allergen Name Allergen Category Reaction Reaction Severity Criticality Documentation Date Start Date Code Code System Note Provider Name and Address Organization Details Recorded Time 446329 amoxicill in medicatio n hives Not available Not available 08/31/2024 723 RxNorm Lilly tapia, [facility] & [place] 5 08:14:49 Medications Name Sig Start Date Stop [...] DateTime 154.94 cm 97.8 [degF] 45.5 kg/m2 749484. 76 g 89 /min 100 % 100 % 111/76 mm[Hg] Maine Mccoy [place] - [facility] - [place] & [place] 08:16:17 Social History None recorded. Functional Status Question Answer Note LastModified by Organizat ion Details LastModified Time Do you use any illicit or recreational drugs? No [email or web address] Information not available 08/31/2024 What is your level of alcohol consumption? None [email or web address] Information not available 08/31/2024 Mental Status None [...] ICD10 Code Diagnosis IMO Codes Diagnosis Note [id number] [facility] [address] [place] [address] [address] [place] [address] 10/23/2024 08:56:55 10/23/2024 09:43:22 Diet education 51825838 Z71.3 [id number] DO Franklin Knight [facility] [address] [place] [address] 11/08/2024 07:58:54 11/08/2024 19:09:07 Morbid obesity 031656567 E66.01 Pre-surger y evaluation 740173294 Z01.818 Postoperative pain 56029 9007 G89.18 Polycystic ovary syndrome 089805790 E28.2 335938 Prediabetes 522129359 R7 3.03 [id number] ARTUR Caballero [facility] [address] [place] [address] 11/21/2024 08:05:05 11/21/2024 10:13:15 History of gastrectomy 867386407 Z90.3 Encouraged patient to continue focus on [...] Member ID Parker Member ID Guarantor Name 11/21/2024 1 HEENA Dawson [id number] Yadira Dawson Notes Date Note Type Note Provider Name and Address Organization Details Recorded Time 11/21/2024 text/html ROS as noted in the [...] Weight loss Surgery. ARTUR Caballero [address] , [place], [address], [facility] & [place] 11/21/2024 10:45:50 OBGyn Episode No OBEpisode recorded.
[2024-12-08 12:00] VITALS: BP 125/73; PULSE 82; O2SAT 98
--- NOTE | 2024-12-08 12:05 | PC.NURSE ---
carey joyner at bedside
--- NOTE | 2024-12-08 12:08 | ED_ITS ---
<Statement entered by Hudson Mckay MD - 12/08/24 14:14> I was consulted by the EDINSON, and we discussed the complexity of the problems being addressed. I approve the treatment and management plan for this patient's care in the emergency department, thus performing a substantive portion of the medical decision making. Hudson Mckay MD Discharge Plan Disposition Patient Disposition: Home, Self-Care Prescriptions Prescriptions: New sulfamethoxazole-trimethoprim [Bactrim DS] 800-160 mg tablet 1 tab PO BID 7 Days Qty: 14 0RF mupirocin calcium 2 % cream 1 applic topical BID 7 Days Qty: 15 0RF No Action omeprazole 40 mg capsule,delayed release(DR/EC) 40 mg PO DAILY clindamycin HCl 300 mg capsule 300 mg PO TID 10 Days Qty: 30 0RF mupirocin [Centany] 2 % ointment 1 applic topical TID Qty: 22 0RF Rx Instructions: Apply to finger as directed Referrals Follow up/Referrals: Boom Darnell [Primary Care Provider, Nursing] - See instructions Activity Restrictions/Add. Instructions Additional Instructions/Restrictions: Use warm compresses. Take antibiotics as directed. Apply topical antibiotics and take p.o. antibiotics as directed. If this does not improve please return to the ED or see your PCP. Clinical Impressions Clinical Impression: Paronychia Instructions Patient Instructions: Paronychia Print Language Print Language: Swedish Discharge ED Provider: Hudson Mckay General Adult HPI General Chief complaint: PAIN Stated complaint: Infection-Right Ring finger Time Seen by Provider: 12/08/24 11:53 Mode of Arrival: Ambulatory Source of Information: Patient Description of Symptoms (Recalled from ER Triage Doc. by RN): patient presents for an infected hang nail on her right ring finger. patient stated this initially occured 3 weeks ago and she presented to the [facility] this morning for treatment and they told her soak it in salt water . so she came here for a second opinion. History of Present Illness HPI narrative: 29-year-old female presents to the ED today for complaint of infected finger. She states that this has been going on for 3 weeks. She did go to [facility] and they told her to soak it in salt water. She came here for another opinion. She has had no fevers or chills. She did have recent bariatric surgery. She does have redness and swelling around the nail on her fourth finger of right hand Related Data Home Medications ?Medication ?Instructions ?Recorded ?Confirmed omeprazole 40 mg capsule,delayed 40 mg PO DAILY 12/08/24 release Previous Rx's ?Medication ?Instructions ?Recorded clindamycin HCl 300 mg capsule 300 mg PO TID 10 days # 30 caps 12/08/24 mupirocin 2 % topical ointment 1 applic topical TID #2 2 grams 12/08/24 (Centany) mupirocin calcium 2 % topical cream 1 applic topical B ID 7 days #15 12/08/24 grams sulfamethoxazole 800 1 tab PO BID 7 days #14 tabs 12/08/24 mg-trimethoprim 160 mg tablet (Bactrim DS) Allergies Allergy/AdvReac Type Severity Reaction Status Date / Time amoxicillin Allergy Mild Hives Verified 12/08/24 11:15 [facility] Disclaimer: The information contained in this section may have been updated after the patient was seen, as this information can be updated by other users. Medical History (Updated 12/08/24 @ 12:13 by Sandra Motley (ED), LEAN LEADER) Paronychia PCOS (polycystic ovarian syndrome) Diabetes Surgical History (Updated 12/08/24 @ 11:16 by Adrienne Partida MA) History of gastric bypass Corn teeth extracted Family History Other Cancer Diabetes Thyroid disorder Social History Smoking Status: Never smoker alcohol intake: never substance use type: denies use current occupational status: unemployed Travel in the last 8 weeks?: None household members: significant other Have you lived/traveled outside US in past 30 days?: No Contact w/someone who lives/traveled outside US past 30 days?: No Exposure to someone with infectious disease in past 14 days?: No Do you have a fever (greater than 100.4 F or 38 C)?: No Have you tested positive for COVID-19?: No Exposed to someone with COVID-19 in past 14 days?: No Do you have a sore throat?: No Do you have a cough?: No Do you have any weakness?: No Do you have any diarrhea?: No Are you experiencing any unusual bleeding?: No Do you have any muscle aches/pain?: No Do you have any abdominal pain?: No Are you experiencing loss of taste or smell?: No Other Medical History Have you received the Flu Vaccine for this season: No Have you received the Pneumonia Vaccine: No ROS Obtained: Yes Systems reviewed as appropriate & no additional complaints except as documented Constitutional Constitutional: Reports as per HPI Physical Exam General General appearance: alert Head Head exam: normocephalic Eye Eye exam: Present PERRL and EOMI ENT ENT exam: Present normal oropharynx and mucous membranes moist Neck Neck exam: Present full ROM and trachea midline Respiratory Respiratory exam: Present other Cardiovascular Cardiovascular exam: Present normal rhythm and +S2 Extremities Exam Extremities exam: Present full ROM and normal capillary refill Neurological Exam Neurological exam: Present alert and oriented X3 Skin Skin exam: Present warm, dry and erythema (To right ring finger, paronychia) Medical Decision Making Medical Records Screening: Per USPSTF and CDC recommendations, given the prevalence of disease in our region, it is our hospital?s policy to screen for HIV and viral Hepatitis for all patients aged 18 and over and those with ongoing risk factors. Frandy Inquiry Pt receiving controlled substance: No Frandy was queried for this patient: No Vital Signs: 12/08/24 11:44 Temperature 98.7 F Temperature Source Oral Pulse Rate [Right Radial] 94 H Respiratory Rate 16 Blood Pressure [Right Arm] 154/81 H Blood Pressure Mean [Right Arm] 105 Blood Pressure Source [Right Arm] Automatic Cuff Blood Pressure Position [Right Arm] Sitting 02 Sat by Pulse Oximetry 100 Oxygen Delivery Method Room Air Medical Decision Narrative: patient is a 29-year-old female presenting to the emergency department for evaluation of paronychia. Patient is hemodynamically stable and nontoxic- appearing upon arrival, afebrile. Differential diagnosis includes paronychia, cellulitis. Patient does have a paronychia to right ring finger. We used a stab incision to her finger and returned to hide only no drainage. I placed her on Bactrim and mupirocin ointment. Patient will return with any problems or concerns. Patient safe for discharge home. Of note I did contact her bariatric surgeon to make sure that the antibiotics were safe for her as she thought that she was unable to take them due to her procedure recently. He states that she can have antibiotics just not NSAIDs Critical Care Critical Care Time Critical Care Time: No
[2024-12-08 12:19] VITALS: BP 122/74; PULSE 84; RESP 18; TEMP 36.7; O2SAT 98
== END 2024-12-08 12:20 | disposition home or self-care (01) ==
PROVIDERS: Emergency Provider Student in an Organized Health Care Education/Training Program
DX: L03.011 Cellulitis of right finger (principal)
CPT/HCPCS: 99283